=== PATIENT | female | born 1955 | race Caucasian/White ===

== ENCOUNTER 2016-12-15 06:25 | Emergency (ER) | payer BC ==
[2016-12-15] MEDS ORDERED: Ondansetron 4 MG/2 ML SDV IVPUSH ONE (06:43)
[2016-12-15] MEDS ORDERED: Sodium Chloride 0.9% 1,000 ML IV ONE ×2 (07:14→09:08)
[2016-12-15] MEDS ORDERED: Sodium Chloride 0.9% 2.5 ML Syringe FLUSH PRN (07:14)
[2016-12-15] MEDS ORDERED: HYDROmorphone 2 MG/ML Syringe IVPUSH ONE (07:14)
[2016-12-15] MEDS ORDERED: Sodium Chloride 0.9% 10 ML Syringe FLUSH PRN (07:14)
--- NOTE | 2016-12-15 07:18 | EDM.PDOC ---
ED HPI GENERAL MEDICAL PROBLEM - General Chief Complaint: Gastrointestinal Problem Stated Complaint: SHINGLES? Time Seen by Provider: 12/15/16 07:06 - History of Present Illness INITIAL COMMENTS - FREE TEXT/NARRATIVE: HISTORY AND PHYSICAL: History of present illness: The patient is a 61-year-old female who follows at [facility] presents with complaints of persistent flank pain since she had shingles in September and new vomiting that started this morning. Patient states she was seen here in the emergency Department back in September of for shingles on the right flank area which she was treated for an improved. Then she had a repeat episode on the left flank which was treated and improved. She had persistent pain on the left flank and back area since that episode and has since seen her provider at [facility]. She was placed on hydrocortisone and gabapentin and felt like it when she took the 2 together they did not seem to work. She has been taking hydrocodone alone and that seems to help with the pain. She tried to taper herself down on the hydrocodone and start the gabapentin and the pain has returned. This morning she woke and has had several episodes of dry heaves and she is concerned about this. She states that her upper abdomen is "sore" but that started after the vomiting. She's had no fevers chills chest pain or shortness of breath and no diarrhea or black or bloody stools. She's had no urinary complaints such as hematuria dysuria or frequency. She has no history. She has not noticed any new rashes. She does have a history of psoriasis which is not new or changed. Review of systems: As per history of present illness and below otherwise all systems reviewed and negative. Past medical history: As per history of present illness and as reviewed below otherwise noncontributory. Surgical history: As per history of present illness and as reviewed below otherwise noncontributory. Social history: No reported history of drug or alcohol abuse. Family history: As per history of present illness and as reviewed below otherwise noncontributory. Physical exam: General: Well-developed well-nourished female who looks uncomfortable in the room but is not colicky. It is sensitive been reviewed by me. HEENT: Atraumatic, normocephalic, pupils reactive, negative for conjunctival pallor or scleral icterus, mucous membranes tacky, throat clear, neck supple, nontender, trachea midline. Lungs: Clear to auscultation, breath sounds equal bilaterally, chest nontender. Heart: S1S2, regular, negative for clicks, rubs, or JVD. Abdomen: Soft, nondistended, mild diffuse abdominal tenderness without any localization right left upper lower, no rebound guarding or tympany, bowel sounds are slightly hypoactive Negative for masses or hepatosplenomegaly. Negative for costovertebral tenderness. Pelvis: Stable nontender. Genitourinary: Deferred. Rectal: Deferred. Extremities: Atraumatic, negative for cords or calf pain. Neurovascular unremarkable. Neuro: Awake, alert, oriented. Cranial nerves II through XII unremarkable. Cerebellum unremarkable. Motor and sensory unremarkable throughout. Exam nonfocal. Skin: Normal turgor, there is diffuse psoriasis seen on the trunk and the remainder of the exposed skin but there are no vesicular lesions redness or rashes appreciated Diagnostics: CBC CMP amylase lipase UA urine culture if indicated CT scan of the abdomen and pelvis Therapeutics: IV fluids Zofran Dilaudid 0908: CT scan results and case was discussed with our urologist Dr. Cormier; he is going to review the CAT scan and help guide treatment plan. 0935: Dr. Saldaña has reviewed the CT and discuss the case with the radiologist . He will perform a CT-guided biopsy and I will contact the patient's provider at [place] for following up of that biopsy. Dr. Cormier recommends a UTI treatment with antibiotics and she can be discharged home on antibiotics after the biopsy is performed. 1010: Patient is going to CT now and will return after the biopsy 1049: This case was discussed with Patricia Pino the nurse practitioner at [facility] and she is also going to discuss this case with Stefano Rhodes. I've advised CT scan to make sure that the pathology report is sent to them as these are her primary care providers and she will need followup of those biopsy results. When the patient is discharged from the ER I will advise to call for followup with Stefano Rhodes ,as Patricia Pino is out of town next week, to get these biopsy results. Per Dr. Diaz, the biopsy was uneventful and the patient tolerated the procedure well. He advises that we watch her for about an hour afterwards and then we can discharge. Patient is aware of this care plan and I will send her home with Percocet Zofran and Levaquin. Impression: Left retroperitoneal mass, UTI Definitive disposition and diagnosis as appropriate pending reevaluation and review of above. Treatments OFFICE CLERK ASSISTANT: Reports: Other (see below) Other Treatments OFFICE CLERK ASSISTANT: hydrocodone abdominal & back area Pain Score (Numeric/FACES): 10 - Related Data Allergies Allergy/AdvReac Type Severity Reaction Status Date / Time aspirin Allergy Anaphylactic Verified 12/15/16 06:31 Shock codeine Allergy Nausea Verified 12/15/16 06:31 erythromycin estolate Allergy Cannot Verified 12/15/16 06:31 [From Ilosone] Remember gluten Allergy Rash Verified 12/15/16 06:31 Penicillins Allergy Cannot Verified 12/15/16 06:31 Remember propoxyphene HCl Allergy Nausea Verified 12/15/16 06:31 [From Darvon] Home Meds: Home Meds Lactobacillus Acidophilus [Probiotic] 1 cap PO DAILY 04/05/16 [History] Multivitamin [Multiple Vitamins] 1 tab PO DAILY 04/05/16 [History] Blair-3/DHA/Epa/Fish Oil [Blair 3 500 Softgel] 1,000 mg PO DAILY 04/05/16 [ History] Past Medical History HEENT History: Reports: None Other HEENT History: wears glasses/contacts Cardiovascular History: Reports: None Respiratory History: Reports: None Gastrointestinal History: Reports: None Genitourinary History: Reports: None [employer] History: Reports: None Musculoskeletal History: Reports: Fracture Other Musculoskeletal History: hx of fx wrist Neurological History: Reports: None Psychiatric History: Reports: None Endocrine/Metabolic History: Reports: None Hematologic History: Reports: None Immunologic History: Reports: None Oncologic (Cancer) History: Reports: None Dermatologic History: Reports: Psoriasis - Infectious Disease History Infectious Disease History: Reports: Shingles - Past Surgical History Head Surgeries/Procedures: Reports: None HEENT Surgical History: Reports: Oral surgery, Tonsillectomy Cardiovascular Surgical History: Reports: None Respiratory Surgical History: Reports: None GI Surgical History: Reports: Appendectomy Female Surgical History: Reports: Hysterectomy Endocrine Surgical History: Reports: None Neurological Surgical History: Reports: None Musculoskeletal Surgical History: Reports: None Oncologic Surgical History: Reports: None Dermatological Surgical History: Reports: None Social & Family History - Family History Family Medical History: Noncontributory - Tobacco Use Smoking Status *Q: Never Smoker - Caffeine Use Caffeine Use: Reports: None - Recreational Drug Use Recreational Drug Use: No Drug Use in Last 12 Months: No ED ROS GENERAL - Review of Systems Review Of Systems: ROS reveals no pertinent complaints other than HPI. ED EXAM, GENERAL - Physical Exam Exam: See Below (See dictation) Course - Vital Signs Last Recorded V/S: Last Vital Signs Temp 37.1 C 12/15/16 11:19 Pulse 88 12/15/16 11:19 Resp 16 12/15/16 11:19 BP 132/62 12/15/16 11:19 Pulse Ox 99 12/15/16 11:19 - Orders/Labs/Meds Orders: Active Orders 24 hr Category Date Time Status Biopsy Lymph Nodes [CT] Routine Exams 12/15/16 10:17 Ordered Guide [CT] Routine Exams 12/15/16 10:16 Ordered CULTURE URINE [RM] Stat Lab 12/15/16 06:50 Received Sodium Chloride 0.9% [Saline Flush] Med 12/15/16 07:14 Active 10 ml FLUSH ASDIRECTED PRN Sodium Chloride 0.9% [Saline Flush] Med 12/15/16 07:14 Active 2.5 ml FLUSH ASDIRECTED PRN Saline Lock Insert [OM.PC] Stat Oth 12/15/16 07:13 Ordered Medication Orders Sodium Chloride (Saline Flush) 10 ml FLUSH ASDIRECTED PRN PRN Reason: Keep Vein Open Sodium Chloride (Saline Flush) 2.5 ml FLUSH ASDIRECTED PRN PRN Reason: Keep Vein Open Labs: Laboratory Tests 12/15/16 12/15/16 12/15/16 Range/Units 06:40 06:40 06:50 WBC 11.93 H (4.0-11.0) K/uL RBC 4.48 (4.30-5.90) M/uL Hgb 13.2 (12.0-16.0) g/dL Hct 38.8 (36.0-46.0) % MCV 86.6 (80.0-98.0) fL MCH 29.5 (27.0-32.0) pg MCHC 34.0 (31.0-37.0) g/dL RDW Std Deviation 42.1 (28.0-62.0) fl RDW Coeff of Carlos 13 (11.0-15.0) % Plt Count 228 (150-400) K/uL MPV 10.50 (7.40-12.00) fL Neut % (Auto) 85.5 H (48.0-80.0) % Lymph % (Auto) 4.3 L (16.0-40.0) % Payne % (Auto) 9.9 (0.0-15.0) % Eos % (Auto) 0.2 (0.0-7.0) % Baso % (Auto) 0.1 (0.0-1.5) % Neut # (Auto) 10.2 H (1.4-5.7) K/uL Lymph # (Auto) 0.5 L (0.6-2.4) K/uL Payne # (Auto) 1.2 H (0.0-0.8) K/uL Eos # (Auto) 0.0 (0.0-0.7) K/uL Baso # (Auto) 0.0 (0.0-0.1) K/uL Nucleated RBC % 0.0 /100WBC Nucleated RBCs # 0 K/uL Sodium 136 (136-146) mmol/L Potassium 4.3 (3.5-5.1) mmol/L Chloride 99 (98-110) mmol/L Carbon Dioxide 20 L (21-31) mmol/L BUN 7 (6.0-23.0) mg/dL Creatinine 0.7 (0.6-1.5) mg/dL Est Cr Clr Drug Dosing 74.72 mL/min Estimated GFR (MDRD) > 60.0 ml/min Glucose 137 H (60-110) mg/dL Calcium 9.5 (8.8-10.8) mg/dL Total Bilirubin 0.8 (0.1-1.5) mg/dL AST 14 (5-40) IU/L ALT 10 (8-54) IU/L Alkaline Phosphatase 78 (40-150) Total Protein 7.7 (6.0-8.0) g/dL Albumin 4.1 (3.5-5.0) g/dL Globulin 3.6 H (2.0-3.5) g/dL Albumin/Globulin Ratio 1.1 L (1.3-2.8) Amylase 182 H (10-90) U/L Lipase 9 (7-80) U/L Urine Color YELLOW Urine Appearance CLEAR Urine pH 5.5 (5.0-8.0) Ur Specific Stanton 1.025 (1.001-1.035) Urine Protein TRACE (NEGATIVE) mg/dL Urine Glucose (UA) NEGATIVE (NEGATIVE) mg/dL Urine Ketones >=80 (NEGATIVE) mg/dL Urine Occult Blood MODERATE (NEGATIVE) Urine Nitrite NEGATIVE (NEGATIVE) Urine Bilirubin SMALL H (NEGATIVE) Urine Ictotest NEGATIVE Urine Urobilinogen 0.2 (<2.0) EU/dL Ur Leukocyte Esterase MODERATE (NEGATIVE) Urine RBC 4-6 (0-2/HPF) Urine WBC 12-15 (0-5/HPF) Ur Epithelial Cells MODERATE (NONE-FEW) Urine Bacteria 1+ H (NEGATIVE) Urine Mucus LIGHT (NONE-MOD) Meds: Medications Generic Name Dose Route Start Last Admin Trade Name Freq PRN Reason Stop Dose Admin Sodium Chloride 10 ml 12/15/16 07:14 Saline Flush FLUSH ASDIRECTED PRN Keep Vein Open Sodium Chloride 2.5 ml 12/15/16 07:14 Saline Flush FLUSH ASDIRECTED PRN Keep Vein Open Discontinued Medications Generic Name Dose Route Start Last Admin Trade Name Freq PRN Reason Stop Dose Admin Hydromorphone HCl 0.5 mg 12/15/16 07:14 12/15/16 07:38 Dilaudid IVPUSH 12/15/16 07:15 0.5 mg ONETIME ONE Administration Hydromorphone HCl 1 mg 12/15/16 10:28 12/15/16 10:39 Dilaudid IVPUSH 12/15/16 10:29 1 mg ONETIME ONE Administration Sodium Chloride 1,000 mls @ 999 mls/hr 12/15/16 07:14 12/15/16 07:37 Normal Saline IV 12/15/16 08:14 999 mls/hr STAT ONE Administration Sodium Chloride 1,000 mls @ 999 mls/hr 12/15/16 09:08 12/15/16 09:12 Normal Saline IV 12/15/16 10:08 999 mls/hr STAT ONE Administration Levofloxacin/Dextrose 500 mg/ 100 mls @ 100 mls/hr 12/15/16 09:30 12/15/16 09 :52 Premix IV 12/15/16 10:29 100 mls/hr ONETIME ONE Administration Iopamidol 100 ml 12/15/16 08:13 12/15/16 08:18 Isovue Multipack-370 (76%) IVPUSH 12/15/16 08:14 100 ml ONETIME STA Administration Ondansetron HCl 4 mg 12/15/16 06:43 12/15/16 06:52 Zofran IVPUSH 12/15/16 06:44 4 mg ONETIME ONE Administration Departure - Departure Time of Disposition: 11:28 Disposition: Home, Self-Care 01 Condition: good Clinical Impression: UTI, Urinary tract infectious disease, Retroperitoneal mass Referrals: Stefano Tirado MD [Primary Care Provider] - Forms: ED Department Discharge Additional Instructions: The following information is given to patients seen in the emergency department who are being discharged to home. This information is to outline your options for follow-up care. We provide all patients seen in our emergency department with a follow-up referral. The need for follow-up, as well as the timing and circumstances, are variable depending upon the specifics of your emergency department visit. If you don't have a primary care physician on staff, we will provide you with a referral. We always advise you to contact your personal physician following an emergency department visit to inform them of the circumstance of the visit and for follow-up with them and/or the need for any referrals to a consulting specialist. The emergency department will also refer you to a specialist when appropriate. This referral assures that you have the opportunity for followup care with a specialist. All of these measure are taken in an effort to provide you with optimal care, which includes your followup. Under all circumstances we always encourage you to contact your private physician who remains a resource for coordinating your care. When calling for followup care, please make the office aware that this follow-up is from your recent emergency room visit. If for any reason you are refused follow-up, please contact the [facility] emergency department at and ask to speak to the emergency department charge nurse. [address] [place] [address] Please take and it waxes directed until they are finished and take the medication as prescribed. Please call for a followup appointment with Dr. Stefano Rhodes next week to get your biopsy results and return to the ER as needed and as discussed - My Orders Last 24 Hours: My Active Orders 12/15/16 06:50 CULTURE URINE [RM] Stat 12/15/16 07:13 Saline Lock Insert [OM.PC] Stat 12/15/16 07:14 Sodium Chloride 0.9% [Saline Flush] 10 ml FLUSH ASDIRECTED PRN Sodium Chloride 0.9% [Saline Flush] 2.5 ml FLUSH ASDIRECTED PRN 12/15/16 10:16 Guide [CT] Routine 12/15/16 10:17 Biopsy Lymph Nodes [CT] Routine - Assessment/Plan Last 24 Hours: My Active Orders 12/15/16 06:50 CULTURE URINE [RM] Stat 12/15/16 07:13 Saline Lock Insert [OM.PC] Stat 12/15/16 07:14 Sodium Chloride 0.9% [Saline Flush] 10 ml FLUSH ASDIRECTED PRN Sodium Chloride 0.9% [Saline Flush] 2.5 ml FLUSH ASDIRECTED PRN 12/15/16 10:16 Guide [CT] Routine 12/15/16 10:17 Biopsy Lymph Nodes [CT] Routine
[2016-12-15 07:36] LABS: CHLORIDE,CL 99 mmol/L (98-110); SODIUM,NA 136 mmol/L (136-146)
[2016-12-15] MEDS ORDERED: Iopamidol 755 MG/ML 500 ML Multipack Bottle IVPUSH STA (08:13)
--- NOTE | 2016-12-15 09:05 | CT ---
CT of the abdomen and pelvis with and without contrast. HISTORY: Pain TECHNIQUE: Axial CT images were obtained of the abdomen and pelvis without and following the adminis tration of 100 mL of Isovue-370 left antecubital fossa. Coronal and sagittal reconstructions obtaine d. FINDINGS: The lung bases are clear, no pleural effusion. There is a tiny area of focal fatty infiltration near the falciform ligament. Spleen is mildly promi nent in size. There is a single gallstone noted. The pancreas appears normal. There is a complex mas slike area of lymph node conglomeration along the retroperitoneum, most prominent along the left isra e of the aorta. This measures approximately 11 x 6 cm. There are a few right periaortic lymph nodes are also noted measuring up to 2.6 cm in the short axis. The left adrenal gland is mildly heterogene ous and nodular. The right adrenal gland appears normal. There is mild delay in the left renal enhancement, however excretion is noted on the delayed images. There is mild to moderate left pyelocaliectasis extending to the region of the mass-like conglomera tion. There is a duplicated right renal collecting system. The large and small bowel are normal in caliber without evidence of obstruction. Diverticulosis with out evidence of diverticulitis. There is a borderline left iliac chain lymph node measuring 1.3 cm. No free fluid. No free air. The urinary bladder appears normal. The visualized osseous structures appear normal. IMPRESSION: 1. There is a large heterogeneous lymph node conglomeration within the retroperitoneum, asymmetric t o the left, resulting in at least partial obstruction of the left ureter. Moderate proximal left hyd ronephrosis is noted. 2. Diverticulosis without evidence of diverticulitis. 3. Cholelithiasis without evidence of cholecystitis. 4. Duplicated right renal collecting system.
[2016-12-15] MEDS ORDERED: Levofloxacin/Dextrose 5%-Water 500 MG in Premix Bag 1 BAG IV ONE (09:30)
[2016-12-15] MEDS ORDERED: HYDROmorphone 1 MG/ML Syringe IVPUSH ONE (10:28)
[2016-12-15 12:03] VITALS: BP 138/64
--- NOTE | 2016-12-15 12:07 | CT ---
EXAMINATION: CT guided left retroperitoneal lymph node biopsy HISTORY: Mass/lymphadenopathy COMPARISON: CT from the same day TECHNIQUE: The procedure, risks, and benefits were discussed with the patient. Risks included bleedi ng, infection, and pain. Written informed consent was obtained. The patient was placed prone on the fluoroscopic table. An adequate location was identified using and aortic calcification is a guide. T he area sterilely prepped and draped. 1% lidocaine was administered for local anesthesia. Using CT g uidance a 16-gauge trocar was advanced into the left retroperitoneal mass. A total of 4 18-gauge cor e biopsies were obtained. There is no bleeding noted through the trocar following the biopsies. No s ignificant retroperitoneal bleeding was noted post biopsy image. The patient tolerated the procedure well. There are no immediate complications. The patient was monitored in the ER following the proce dure. IMPRESSION: Successful CT-guided left retroperitoneal mass/lymph node biopsy.
== END 2016-12-15 12:21 | disposition home or self-care (01) ==
LOC: MW.ED 06:25
PROC: 07BD3ZX Excision of Aortic Lymphatic, Percutaneous Approach, Diagnostic (ICD-10-PCS; principal; 2016-12-15)
DX: R19.00 Intra-abdominal and pelvic swelling, mass and lump, unspecified site (principal); N39.0 Urinary tract infection, site not specified; Z88.8 Allergy status to other drugs, medicaments and biological substances; Z88.0 Allergy status to penicillin
CPT/HCPCS: 36415; 38505; 49180; 74178; 77012; 80053; 81001; 82150; 83690; 85025; 87086; 96361; 96365; 96375; 96376; 99284; J1170; J1956; J2405; J7040; Q9967; 88305; 99285

== ENCOUNTER 2016-12-16 09:00 | Emergency (ER) | payer BC ==
--- NOTE | 2016-12-16 09:07 | EDM.PDOC ---
ED HPI GENERAL MEDICAL PROBLEM - General Stated Complaint: IN PAINS Time Seen by Provider: 12/16/16 09:05 - History of Present Illness INITIAL COMMENTS - FREE TEXT/NARRATIVE: HISTORY AND PHYSICAL: History of present illness: The patient is a 61-year-old female who was seen here yesterday for left flank pain and was diagnosed with a left retroperitoneal mass which was evaluated by labs CT scan and she underwent a CT-guided biopsy per ; she was also seen by her right is Dr. Cormier and was treated as a UTI on top of the mass. She was referred back to [facility] where her provider is for biopsy followup as this was very suspicious for a lymphoma this process. The patient did well and was discharged home but never really felt completely pain relieved before leaving and was sent home with Percocet. She reports that today saying that the Percocet is not working and she is having significant pain. She says that taking one and a half tablets of the Percocet 5/325 only last for one hour and should not unable to get any rest. She's had nausea but no vomiting and no fevers. They have not noticed any drainage from the biopsy site. She has no anterior abdominal pain chest pain on the left flank as previously Review of systems: As per history of present illness and below otherwise all systems reviewed and negative. Past medical history: As per history of present illness and as reviewed below otherwise noncontributory. Surgical history: As per history of present illness and as reviewed below otherwise noncontributory. Social history: No reported history of drug or alcohol abuse. Family history: As per history of present illness and as reviewed below otherwise noncontributory. Physical exam: General: Well-developed well-nourished female who is nontoxic vital signs of been reviewed by me HEENT: Atraumatic, normocephalic, pupils reactive, negative for conjunctival pallor or scleral icterus, mucous membranes moist, throat clear, neck supple, nontender, trachea midline. Lungs: Clear to auscultation, breath sounds equal bilaterally, chest nontender. Heart: S1S2, regular, negative for clicks, rubs, or JVD. Abdomen: Soft, nondistended, nontender. NABS. The biopsy site is clean and dry without any ecchymosis soft tissue swelling or any changes from yesterday when I evaluated it. Skin: Normal turgor no evidence of any rashes or lesions Genitourinary: Deferred. Rectal: Deferred. Extremities: Atraumatic, negative for cords or calf pain. Neurovascular unremarkable. Neuro: Awake, alert, oriented. Cranial nerves II through XII unremarkable. Cerebellum unremarkable. Motor and sensory unremarkable throughout. Exam nonfocal. Diagnostics: CBC CMP Therapeutics: IV fluids Dilaudid Toradol Zofran 09: Patricia Pino at [facility] was informed that the patient is here as she has been following with this patient. She does have appointments open on Monday for followup and if need be she can see the patient later today. 0937: Case was discussed with our radiologist Dr. Diaz about her intractable pain and he recommends re\re imaging the area just to make sure that there is no retroperitoneal bleeding from the biopsy and that the hydronephrosis that was present yesterday is now progressing. He reiterates that the biopsy was very uncomplicated with minimal bleeding he doesn't anticipate there is bleeding but due to the patient's clinical state he recommends rescanning. Patient was made aware of this. 1120: Case was discussed with Dr. Patterson for advice for pain management stronger than her cassette. He recommends oral Dilaudid 1-2 mg every 4-6 hours and if that is not working then the patient can see her primary for further recommendations. I have discussed this care plan with Patricia Pino and she will see the patient on Monday and her office will contact the for an appointment time. The patient states she has an appointment with Dr. Stefano Rhodes on Monday and I advised that she can hold off until that appointment as it would be better but if she cannot and needs a change in meds she should go to the appointment on Monday. I discussed the testing results with the patient and the care plan for home. They still do not seem incredibly comfortable with this but as she is very comfortable currently in the ED she is willing to try. According to nursing she seemed to get a great deal of relief just from the Toradol so I will prescribe her a short burst of that as well. Advised them that if they're having issues that she can return to the ER. Impression: Left flank pain persistent with history of retroperitoneal mass Definitive disposition and diagnosis as appropriate pending reevaluation and review of above. Left Back Pain Score (Numeric/FACES): 10 - Related Data Allergies Allergy/AdvReac Type Severity Reaction Status Date / Time aspirin Allergy Anaphylactic Verified 12/15/16 06:31 Shock codeine Allergy Nausea Verified 12/15/16 06:31 erythromycin estolate Allergy Cannot Verified 12/15/16 06:31 [From Ilosone] Remember gluten Allergy Rash Verified 12/15/16 06:31 Penicillins Allergy Cannot Verified 12/15/16 06:31 Remember propoxyphene HCl Allergy Nausea Verified 12/15/16 06:31 [From Darvon] Home Meds: Home Meds Lactobacillus Acidophilus [Probiotic] 1 cap PO DAILY 04/05/16 [History] Multivitamin [Multiple Vitamins] 1 tab PO DAILY 04/05/16 [History] Albion-3/DHA/Epa/Fish Oil [Albion 3 500 Softgel] 1,000 mg PO DAILY 04/05/16 [ History] Hydrocodone/Acetaminophen [Hydrocodon-Acetaminophn 10-325] 1 - 2 tab PO Q4H PRN 12/16/16 [History] Levofloxacin [Levaquin] 0 mg PO DAILY 12/16/16 [History] oxyCODONE HCl/Acetaminophen [oxyCODONE-Acetaminophen 5-325] 1 - 2 tab PO Q6H PRN 12/16/16 [History] Past Medical History HEENT History: Reports: None Other HEENT History: wears glasses/contacts Cardiovascular History: Reports: None Respiratory History: Reports: None Gastrointestinal History: Reports: None Genitourinary History: Reports: None REMITTANCE CLERK History: Reports: None Musculoskeletal History: Reports: Fracture Other Musculoskeletal History: hx of fx wrist Neurological History: Reports: None Psychiatric History: Reports: None Endocrine/Metabolic History: Reports: None Hematologic History: Reports: None Immunologic History: Reports: None Oncologic (Cancer) History: Reports: None Dermatologic History: Reports: Psoriasis - Infectious Disease History Infectious Disease History: Reports: Shingles - Past Surgical History Head Surgeries/Procedures: Reports: None HEENT Surgical History: Reports: Oral surgery, Tonsillectomy Cardiovascular Surgical History: Reports: None Respiratory Surgical History: Reports: None GI Surgical History: Reports: Appendectomy Female Surgical History: Reports: Hysterectomy Endocrine Surgical History: Reports: None Neurological Surgical History: Reports: None Musculoskeletal Surgical History: Reports: None Oncologic Surgical History: Reports: None Dermatological Surgical History: Reports: None Social & Family History - Family History Family Medical History: Noncontributory - Tobacco Use Smoking Status *Q: Never Smoker - Caffeine Use Caffeine Use: Reports: None - Recreational Drug Use Recreational Drug Use: No Drug Use in Last 12 Months: No ED ROS GENERAL - Review of Systems Review Of Systems: ROS reveals no pertinent complaints other than HPI. ED EXAM, GENERAL - Physical Exam Exam: See Below (See dictation) Course - Vital Signs Last Recorded V/S: Last Vital Signs Temp 36.8 C 12/16/16 09:15 Pulse 96 12/16/16 09:15 Resp 22 H 12/16/16 09:15 BP 155/69 H 12/16/16 09:15 Pulse Ox 100 12/16/16 09:15 - Orders/Labs/Meds Orders: Active Orders 24 hr Category Date Time Status Sodium Chloride 0.9% [Saline Flush] Med 12/16/16 09:08 Active 10 ml FLUSH ASDIRECTED PRN Sodium Chloride 0.9% [Saline Flush] Med 12/16/16 09:08 Active 2.5 ml FLUSH ASDIRECTED PRN Saline Lock Insert [OM.PC] Stat Oth 12/16/16 09:08 Ordered Medication Orders Sodium Chloride (Saline Flush) 10 ml FLUSH ASDIRECTED PRN PRN Reason: Keep Vein Open Last Admin: 12/16/16 09:51 Dose: 10 ml Sodium Chloride (Saline Flush) 2.5 ml FLUSH ASDIRECTED PRN PRN Reason: Keep Vein Open Last Admin: 12/16/16 09:51 Dose: 2.5 ml Labs: Laboratory Tests 12/16/16 12/16/16 Range/Units 09:18 09:18 WBC 11.16 H (4.0-11.0) K/uL RBC 4.10 L (4.30-5.90) M/uL Hgb 12.2 (12.0-16.0) g/dL Hct 36.0 (36.0-46.0) % MCV 87.8 (80.0-98.0) fL MCH 29.8 (27.0-32.0) pg MCHC 33.9 (31.0-37.0) g/dL RDW Std Deviation 43.7 (28.0-62.0) fl RDW Coeff of Carlos 14 (11.0-15.0) % Plt Count 217 (150-400) K/uL MPV 10.50 (7.40-12.00) fL Neut % (Auto) 82.0 H (48.0-80.0) % Lymph % (Auto) 5.3 L (16.0-40.0) % Holt % (Auto) 12.2 (0.0-15.0) % Eos % (Auto) 0.4 (0.0-7.0) % Baso % (Auto) 0.1 (0.0-1.5) % Neut # (Auto) 9.2 H (1.4-5.7) K/uL Lymph # (Auto) 0.6 (0.6-2.4) K/uL Holt # (Auto) 1.4 H (0.0-0.8) K/uL Eos # (Auto) 0.1 (0.0-0.7) K/uL Baso # (Auto) 0.0 (0.0-0.1) K/uL Nucleated RBC % 0.0 /100WBC Nucleated RBCs # 0 K/uL Sodium 137 (136-146) mmol/L Potassium 5.2 H (3.5-5.1) mmol/L Chloride 101 (98-110) mmol/L Carbon Dioxide 23 (21-31) mmol/L BUN 8 (6.0-23.0) mg/dL Creatinine 0.9 (0.6-1.5) mg/dL Est Cr Clr Drug Dosing 58.54 mL/min Estimated GFR (MDRD) > 60.0 ml/min Glucose 124 H (60-110) mg/dL Calcium 9.9 (8.8-10.8) mg/dL Total Bilirubin 0.6 (0.1-1.5) mg/dL AST 11 (5-40) IU/L ALT 10 (8-54) IU/L Alkaline Phosphatase 79 (40-150) Total Protein 7.3 (6.0-8.0) g/dL Albumin 3.9 (3.5-5.0) g/dL Globulin 3.4 (2.0-3.5) g/dL Albumin/Globulin Ratio 1.1 L (1.3-2.8) Meds: Medications Generic Name Dose Route Start Last Admin Trade Name Freq PRN Reason Stop Dose Admin Sodium Chloride 10 ml 12/16/16 09:08 12/16/16 09:51 Saline Flush FLUSH 10 ml ASDIRECTED PRN Administration Keep Vein Open Sodium Chloride 2.5 ml 12/16/16 09:08 12/16/16 09:51 Saline Flush FLUSH 2.5 ml ASDIRECTED PRN Administration Keep Vein Open Discontinued Medications Generic Name Dose Route Start Last Admin Trade Name Ocq PRN Reason Stop Dose Admin Hydromorphone HCl 1 mg 12/16/16 09:20 12/16/16 09:44 Dilaudid IVPUSH 12/16/16 09:21 1 mg ONETIME ONE Administration Sodium Chloride 500 mls @ 999 mls/hr 12/16/16 09:30 Normal Saline IV STAT BATSHEVA Sodium Chloride 500 mls @ 999 mls/hr 12/16/16 09:47 12/16/16 09:49 Normal Saline IV 12/16/16 10:17 999 mls/hr .Bolus ONE Administration Iopamidol 75 ml 12/16/16 10:04 Isovue Multipack-370 (76%) IVPUSH 12/16/16 10:05 ONETIME STA Ketorolac Tromethamine 30 mg 12/16/16 09:20 12/16/16 09:43 Toradol IVPUSH 12/16/16 09:21 30 mg ONETIME ONE Administration Ondansetron HCl 4 mg 12/16/16 09:20 12/16/16 09:43 Zofran IVPUSH 12/16/16 09:21 4 mg ONETIME ONE Administration Departure - Departure Time of Disposition: 11:49 Disposition: Home, Self-Care 01 Condition: good Clinical Impression: Left flank pain, Retroperitoneal mass Additional Instructions: The following information is given to patients seen in the emergency department who are being discharged to home. This information is to outline your options for follow-up care. We provide all patients seen in our emergency department with a follow-up referral. The need for follow-up, as well as the timing and circumstances, are variable depending upon the specifics of your emergency department visit. If you don't have a primary care physician on staff, we will provide you with a referral. We always advise you to contact your personal physician following an emergency department visit to inform them of the circumstance of the visit and for follow-up with them and/or the need for any referrals to a consulting specialist. The emergency department will also refer you to a specialist when appropriate. This referral assures that you have the opportunity for followup care with a specialist. All of these measure are taken in an effort to provide you with optimal care, which includes your followup. Under all circumstances we always encourage you to contact your private physician who remains a resource for coordinating your care. When calling for followup care, please make the office aware that this follow-up is from your recent emergency room visit. If for any reason you are refused follow-up, please contact the [facility] emergency department at and ask to speak to the emergency department charge nurse. [address] [phone] [facility] [address] [place], [place] [id number] Please continue with your antibiotics as prescribed yesterday and stopped her Percocet and start the new medications, Dilaudid and Toradol, for pain. These keep your appointment with Dr. Tirado on Monday or see Patricia Pino on Monday if you need to. Return to ER as needed and as discussed - My Orders Last 24 Hours: My Active Orders 12/16/16 09:08 Sodium Chloride 0.9% [Saline Flush] 10 ml FLUSH ASDIRECTED PRN Sodium Chloride 0.9% [Saline Flush] 2.5 ml FLUSH ASDIRECTED PRN Saline Lock Insert [OM.PC] Stat - Assessment/Plan Last 24 Hours: My Active Orders 12/16/16 09:08 Sodium Chloride 0.9% [Saline Flush] 10 ml FLUSH ASDIRECTED PRN Sodium Chloride 0.9% [Saline Flush] 2.5 ml FLUSH ASDIRECTED PRN Saline Lock Insert [OM.PC] Stat
[2016-12-16] MEDS ORDERED: Sodium Chloride 0.9% 10 ML Syringe FLUSH PRN (09:08)
[2016-12-16] MEDS ORDERED: Sodium Chloride 0.9% 2.5 ML Syringe FLUSH PRN (09:08)
[2016-12-16] MEDS ORDERED: Ketorolac 30 MG/ML SDV IVPUSH ONE (09:20)
[2016-12-16] MEDS ORDERED: HYDROmorphone 2 MG/ML Syringe IVPUSH ONE (09:20)
[2016-12-16] MEDS ORDERED: Ondansetron 4 MG/2 ML SDV IVPUSH ONE (09:20)
[2016-12-16] MEDS ORDERED: Sodium Chloride 0.9% 500 ML IV SCH (09:30)
[2016-12-16] MEDS ORDERED: Sodium Chloride 0.9% 500 ML IV ONE (09:47)
[2016-12-16] MEDS ORDERED: Iopamidol 755 MG/ML 500 ML Multipack Bottle IVPUSH STA (10:04)
[2016-12-16 10:14] LABS: CHLORIDE,CL 101 mmol/L (98-110); SODIUM,NA 137 mmol/L (136-146)
--- NOTE | 2016-12-16 11:08 | CT ---
CT of the abdomen and pelvis with contrast. HISTORY: Pain TECHNIQUE: Axial CT images were obtained of the abdomen and pelvis following administration of 75 mL of Isovue-370 in the right arm without complication. Coronal and sagittal reconstructions obtained. Comparison: 12/15/2016. FINDINGS: The lung bases are clear, no pleural effusion. The liver, spleen, and pancreas appear unchanged. There is nodular thickening of the left adrenal gl and again noted. There is a stable dominant left peritoneal mass/lymph node conglomeration again not ed, unchanged in size and appearance. There is no evidence of retroperitoneal hemorrhage from the re cent biopsy. No free air. There is a single gallstone within the gallbladder. The left kidney again demonstrates moderate proximal hydronephrosis. No residual contrast is noted w ithin the left renal collecting system suggesting only partial obstruction. The right kidney enhance s and functions normal. The large and small bowel are normal in caliber without evidence of obstruction. Diverticulosis with out evidence of diverticulitis. There is a trace free fluid within the pelvis. Stable presumed mildl y prominent left iliac chain lymph node at 11 mm. The urinary bladder is decompressed. No suspicious osseous abnormalities. IMPRESSION: 1. Stable retroperitoneal mass and lymphadenopathy without evidence of retroperitoneal hemorrhage. 2. Stable moderate proximal left hydronephrosis. Clearance of the previous intrarenal contrast sugge sts only partial obstruction. 3. Trace free pelvic fluid. 4. Diverticulosis without evidence of diverticulitis. 5. Cholelithiasis.
[2016-12-16 11:46] VITALS: BP 124/59
== END 2016-12-16 12:08 | disposition home or self-care (01) ==
LOC: MW.ED 09:00
DX: R10.9 Unspecified abdominal pain (principal); R19.09 Other intra-abdominal and pelvic swelling, mass and lump; Z88.0 Allergy status to penicillin; Z88.8 Allergy status to other drugs, medicaments and biological substances; Z79.899 Other long term (current) drug therapy
CPT/HCPCS: 36415; 74177; 80053; 85025; 96361; 96374; 96375; 99284; J1170; J1885; J2405; J7040; Q9967; 99285

== ENCOUNTER 2017-12-07 00:59 | Observation (INO) | payer BC ==
[2017-12-07] MEDS ORDERED: Sodium Chloride 0.9% 2.5 ML Syringe FLUSH PRN ×2 (01:13)
[2017-12-07] MEDS ORDERED: Sodium Chloride 0.9% 10 ML Syringe FLUSH PRN (01:13)
[2017-12-07] MEDS ORDERED: Sodium Chloride 0.9% 1,000 ML IV ONE (01:13)
--- NOTE | 2017-12-07 01:17 | EDM.PDOC ---
ED HPI GENERAL MEDICAL PROBLEM - General Chief Complaint: Chest Pain Stated Complaint: CHEST TIGHTNESS Time Seen by Provider: 12/07/17 01:16 Source of Information: Reports: Patient, Family History Limitations: Reports: No Limitations - History of Present Illness INITIAL COMMENTS - FREE TEXT/NARRATIVE: HISTORY AND PHYSICAL: History of present illness: [62-year-old female presenting to emergency department with chief complaint of chest tightness starting at midnight this evening with past medical history of non-Hodgkin's lymphoma last chemotherapy 7 days ago. Patient states that around 11:30 last evening she started to feel "mildly achy" . Then around midnight began to have some chest tightness which radiated into her left arm. The pain was constant and sharp and has continued since presenting to the emergency department. She has no significant cardiopulmonary history but was diagnosed with non-Hodgkin's lymphoma and recent received her last chemotherapy last 11/30/17. She denies any associated nausea, vomiting, diaphoresis or radiation into the jaw. She does have a right-sided port. She has had mild shortness of breath she feels this most likely is related to her anxiety that she is feeling with her chest pain. She denies any palpitations, syncopal episodes, abdominal pain, diarrhea, or focal neurologic deficits. She has noticed some leg swelling bilaterally which is more chronic nature. Echocardiogram performed on 09/08/17 showed a LVEF of 65%, grade 1 impaired relaxation of the left ventricle diastolic filling, mild MV regurg, trace tricuspid regurg, and minimal dilation of the aortic root. 0215: CBC: Neutropenia 3.55, ALT 94, UA negative, CXR unremarkable, ECG no ST changes, NSR, one PAC noted. 0310: D-dimer negative. Patient continued to have chest/back pain without EKG changes and negative troponin. ] Review of systems: As per history of present illness and below otherwise all systems reviewed and negative. Past medical history: As per history of present illness and as reviewed below otherwise noncontributory. Surgical history: As per history of present illness and as reviewed below otherwise noncontributory. Social history: No reported history of drug or alcohol abuse. Family history: As per history of present illness and as reviewed below otherwise noncontributory. Physical exam: HEENT: Atraumatic, normocephalic, pupils reactive, negative for conjunctival pallor or scleral icterus, mucous membranes moist, throat clear, neck supple, nontender, trachea midline. Lungs: Clear to auscultation, breath sounds equal bilaterally, chest nontender. Heart: S1S2, regular, negative for clicks, rubs, or JVD. Abdomen: Soft, nondistended, nontender. Negative for masses or hepatosplenomegaly. Negative for costovertebral tenderness. Pelvis: Stable nontender. Genitourinary: Deferred. Rectal: Deferred. Extremities: Atraumatic, negative for cords or calf pain. Neurovascular unremarkable. Neuro: Awake, alert, oriented. Cranial nerves II through XII unremarkable. Cerebellum unremarkable. Motor and sensory unremarkable throughout. Exam nonfocal. Diagnostics: [CBC, CMP, troponin, amylase, lipase, d-dimer, chest x-ray, EKG,] Therapeutics: [2 mg IV morphine 1 mg IV Dilaudid ] Impression: [Atypical chest pain] Plan: [Patient continued to have atypical chest pain. Talked with hospitalist Dr. Palacios who agreed with admission for observation telemetry for atypical chest pain. This was communicated to the patient who agrees. Patient was found to be neutropenic most likely secondary to recent chemotherapy as she has a history of non-Hodgkin lymphoma. Last chemotherapy was on 11/30/17.] middle chest Pain Score (Numeric/FACES): 8 - Related Data Allergies Allergy/AdvReac Type Severity Reaction Status Date / Time aspirin Allergy Anaphylactic Verified 12/07/17 01:09 Shock codeine Allergy Nausea Verified 12/07/17 01:09 erythromycin estolate Allergy Cannot Verified 12/07/17 01:09 [From Ilosone] Remember gluten Allergy Rash Verified 12/07/17 01:09 Penicillins Allergy Cannot Verified 12/07/17 01:09 Remember propoxyphene HCl Allergy Nausea Verified 12/07/17 01:09 [From Darvon] Home Meds: Home Meds Lactobacillus Acidophilus [Probiotic] 0 mg PO DAILY 04/05/16 [History] Multivitamin [Multiple Vitamins] 0 mg PO DAILY 04/05/16 [History] [place]-3/DHA/Epa/Fish Oil [[place] 3 500 Softgel] 1,000 mg PO DAILY 04/05/16 [ History] Past Medical History HEENT History: Reports: None Other HEENT History: wears glasses/contacts Cardiovascular History: Reports: None Respiratory History: Reports: None Gastrointestinal History: Reports: None Genitourinary History: Reports: None FRIT COATER History: Reports: None Musculoskeletal History: Reports: Fracture Other Musculoskeletal History: hx of fx wrist Neurological History: Reports: None Psychiatric History: Reports: None Endocrine/Metabolic History: Reports: None Hematologic History: Reports: None Immunologic History: Reports: None Oncologic (Cancer) History: Reports: None Dermatologic History: Reports: Psoriasis - Infectious Disease History Infectious Disease History: Reports: Shingles - Past Surgical History HEENT Surgical History: Reports: Oral Surgery, Tonsillectomy Social & Family History - Family History Family Medical History: Noncontributory - Tobacco Use Smoking Status *Q: Never Smoker - Caffeine Use Caffeine Use: Reports: None - Recreational Drug Use Recreational Drug Use: No Drug Use in Last 12 Months: No ED ROS GENERAL - Review of Systems Review Of Systems: See Below ED EXAM, GENERAL - Physical Exam Exam: See Below Course - Vital Signs Last Recorded V/S: Last Vital Signs Temp 98.5 F 12/07/17 02:48 Pulse 83 12/07/17 02:48 Resp 15 12/07/17 02:48 BP 139/78 12/07/17 02:48 Pulse Ox 100 12/07/17 02:48 - Orders/Labs/Meds Orders: Active Orders 24 hr Category Date Time Status Cardiac Monitoring [RC] . DIRECTED Care 12/07/17 01:13 Active EKG Documentation Completion [RC] STAT Care 12/07/17 01:13 Active Oxygen Therapy [RC] ASDIRECTED Care 12/07/17 01:13 Active Pulse Oximetry [RC] ASDIRECTED Care 12/07/17 01:13 Active Chest 1V Frontal [CR] Stat Exams 12/07/17 01:13 Taken Sodium Chloride 0.9% [Saline Flush] Med 12/07/17 01:13 Active 10 ml FLUSH ASDIRECTED PRN Sodium Chloride 0.9% [Saline Flush] Med 12/07/17 01:13 Active 2.5 ml FLUSH ASDIRECTED PRN Sodium Chloride 0.9% [Saline Flush] Med 12/07/17 01:13 Active 2.5 ml FLUSH ASDIRECTED PRN Saline Lock Insert [OM.PC] Stat Oth 12/07/17 01:13 Ordered Medication Orders Sodium Chloride (Saline Flush) 2.5 ml FLUSH ASDIRECTED PRN PRN Reason: Keep Vein Open Sodium Chloride (Saline Flush) 10 ml FLUSH ASDIRECTED PRN PRN Reason: Keep Vein Open Sodium Chloride (Saline Flush) 2.5 ml FLUSH ASDIRECTED PRN PRN Reason: Keep Vein Open Labs: Laboratory Tests 12/07/17 12/07/17 12/07/17 Range/Units 00:28 01:19 01:19 WBC 3.55 L (4.0-11.0) K/uL RBC 3.61 L (4.30-5.90) M/uL Hgb 11.1 L (12.0-16.0) g/dL Hct 33.3 L (36.0-46.0) % MCV 92.2 (80.0-98.0) fL MCH 30.7 (27.0-32.0) pg MCHC 33.3 (31.0-37.0) g/dL RDW Std Deviation 49.3 (28.0-62.0) fl RDW Coeff of Carlos 15 (11.0-15.0) % Plt Count 94 L (150-400) K/uL MPV 10.20 (7.40-12.00) fL Neut % (Auto) 69.0 (48.0-80.0) % Lymph % (Auto) 13.5 L (16.0-40.0) % [place] % (Auto) 12.4 (0.0-15.0) % Eos % (Auto) 4.8 (0.0-7.0) % Baso % (Auto) 0.3 (0.0-1.5) % Neut # (Auto) 2.5 (1.4-5.7) K/uL Lymph # (Auto) 0.5 L (0.6-2.4) K/uL [place] # (Auto) 0.4 (0.0-0.8) K/uL Eos # (Auto) 0.2 (0.0-0.7) K/uL Baso # (Auto) 0.0 (0.0-0.1) K/uL INR 1.02 D-Dimer, Quantitative (0.0-0.52) mg/LFEU Sodium (136-145) mmol/L Potassium (3.5-5.1) mmol/L Chloride (98-107) mmol/L Carbon Dioxide (21.0-32.0) mmol/L BUN (7.0-18.0) mg/dL Creatinine (0.6-1.0) mg/dL Est Cr Clr Drug Dosing mL/min Estimated GFR (MDRD) ml/min Glucose (74-106) mg/dL Calcium (8.5-10.1) mg/dL Total Bilirubin (0.2-1.0) mg/dL AST (15-37) IU/L ALT (14-63) IU/L Alkaline Phosphatase (46-116) U/L Troponin I (0.000-0.056) ng/mL Total Protein (6.4-8.2) g/dL Albumin (3.4-5.0) g/dL Globulin (2.0-3.5) g/dL Albumin/Globulin Ratio (1.3-2.8) Urine Color YELLOW Urine Appearance CLEAR Urine pH 7.5 (5.0-8.0) Ur Specific [place] 1.015 (1.001-1.035) Urine Protein NEGATIVE (NEGATIVE) mg/dL Urine Glucose (UA) NEGATIVE (NEGATIVE) mg/dL Urine Ketones NEGATIVE (NEGATIVE) mg/dL Urine Occult Blood NEGATIVE (NEGATIVE) Urine Nitrite NEGATIVE (NEGATIVE) Urine Bilirubin NEGATIVE (NEGATIVE) Urine Urobilinogen 0.2 (<2.0) EU/dL Ur Leukocyte Esterase NEGATIVE (NEGATIVE) Urine RBC 0-2 (0-2/HPF) Urine WBC 1-3 (0-5/HPF) Ur Epithelial Cells OCCASIONAL (NONE-FEW) Urine Bacteria RARE (NEGATIVE) 12/07/17 12/07/17 Range/Units 01:19 02:31 WBC (4.0-11.0) K/uL RBC (4.30-5.90) M/uL Hgb (12.0-16.0) g/dL Hct (36.0-46.0) % MCV (80.0-98.0) fL MCH (27.0-32.0) pg MCHC (31.0-37.0) g/dL RDW Std Deviation (28.0-62.0) fl RDW Coeff of Carlos (11.0-15.0) % Plt Count (150-400) K/uL MPV (7.40-12.00) fL Neut % (Auto) (48.0-80.0) % Lymph % (Auto) (16.0-40.0) % [place] % (Auto) (0.0-15.0) % Eos % (Auto) (0.0-7.0) % Baso % (Auto) (0.0-1.5) % Neut # (Auto) (1.4-5.7) K/uL Lymph # (Auto) (0.6-2.4) K/uL [place] # (Auto) (0.0-0.8) K/uL Eos # (Auto) (0.0-0.7) K/uL Baso # (Auto) (0.0-0.1) K/uL INR D-Dimer, Quantitative 0.44 (0.0-0.52) mg/LFEU Sodium 139 (136-145) mmol/L Potassium 4.1 (3.5-5.1) mmol/L Chloride 106 (98-107) mmol/L Carbon Dioxide 26.5 (21.0-32.0) mmol/L BUN 23 H (7.0-18.0) mg/dL Creatinine 0.7 (0.6-1.0) mg/dL Est Cr Clr Drug Dosing 73.80 mL/min Estimated GFR (MDRD) > 60.0 ml/min Glucose 103 (74-106) mg/dL Calcium 9.1 (8.5-10.1) mg/dL Total Bilirubin 0.3 (0.2-1.0) mg/dL AST 11 L (15-37) IU/L ALT 18 (14-63) IU/L Alkaline Phosphatase 86 (46-116) U/L Troponin I < 0.050 (0.000-0.056) ng/mL Total Protein 6.2 L (6.4-8.2) g/dL Albumin 3.8 (3.4-5.0) g/dL Globulin 2.4 (2.0-3.5) g/dL Albumin/Globulin Ratio 1.6 (1.3-2.8) Urine Color Urine Appearance Urine pH (5.0-8.0) Ur Specific [place] (1.001-1.035) Urine Protein (NEGATIVE) mg/dL Urine Glucose (UA) (NEGATIVE) mg/dL Urine Ketones (NEGATIVE) mg/dL Urine Occult Blood (NEGATIVE) Urine Nitrite (NEGATIVE) Urine Bilirubin (NEGATIVE) Urine Urobilinogen (<2.0) EU/dL Ur Leukocyte Esterase (NEGATIVE) Urine RBC (0-2/HPF) Urine WBC (0-5/HPF) Ur Epithelial Cells (NONE-FEW) Urine Bacteria (NEGATIVE) Meds: Medications Generic Name Dose Route Start Last Admin Trade Name Freq PRN Reason Stop Dose Admin Sodium Chloride 2.5 ml 12/07/17 01:13 Saline Flush FLUSH ASDIRECTED PRN Keep Vein Open Sodium Chloride 10 ml 12/07/17 01:13 Saline Flush FLUSH ASDIRECTED PRN Keep Vein Open Sodium Chloride 2.5 ml 12/07/17 01:13 Saline Flush FLUSH ASDIRECTED PRN Keep Vein Open Discontinued Medications Generic Name Dose Route Start Last Admin Trade Name Freq PRN Reason Stop Dose Admin Hydromorphone HCl 1 mg 12/07/17 02:40 12/07/17 02:44 Dilaudid IVPUSH 12/07/17 02:41 1 mg ONETIME ONE Administration Sodium Chloride 1,000 mls @ 999 mls/hr 12/07/17 01:13 12/07/17 01:31 Normal Saline IV 12/07/17 02:13 999 mls/hr .Bolus ONE Administration Morphine Sulfate 2 mg 12/07/17 01:58 12/07/17 02:08 Morphine IVPUSH 12/07/17 01:59 2 mg ONETIME ONE Administration Ondansetron HCl 4 mg 12/07/17 02:00 12/07/17 02:07 Zofran IVPUSH 12/07/17 02:01 4 mg ONETIME ONE Administration Departure - Departure Time of Disposition: 03:17 Disposition: Admitted As Inpatient 68 Condition: Fair Clinical Impression: Atypical chest pain - Discharge Information Referrals: Stefano Tirado MD [Primary Care Provider] - Forms: ED Department Discharge Additional Instructions: My general discharge The following information is given to patients seen in the emergency department who are being discharged to home. This information is to outline your options for follow-up care. We provide all patients seen in our emergency department with a follow-up referral. The need for follow-up, as well as the timing and circumstances, are variable depending upon the specifics of your emergency department visit. If you don't have a primary care physician on staff, we will provide you with a referral. We always advise you to contact your personal physician following an emergency department visit to inform them of the circumstance of the visit and for follow-up with them and/or the need for any referrals to a consulting specialist. The emergency department will also refer you to a specialist when appropriate. This referral assures that you have the opportunity for follow-up care with a specialist. All of these measure are taken in an effort to provide you with optimal care, which includes your follow-up. Under all circumstances we always encourage you to contact your private physician who remains a resource for coordinating your care. When calling for follow-up care, please make the office aware that this follow-up is from your recent emergency room visit. If for any reason you are refused follow-up, please contact the [facility] Emergency Department at and asked to speak to the emergency department charge nurse. [facility] [address] [place] [address] - My Orders Last 24 Hours: My Active Orders 12/07/17 01:13 Cardiac Monitoring [RC] . DIRECTED EKG Documentation Completion [RC] STAT Oxygen Therapy [RC] ASDIRECTED Pulse Oximetry [RC] ASDIRECTED Chest 1V Frontal [CR] Stat Sodium Chloride 0.9% [Saline Flush] 10 ml FLUSH ASDIRECTED PRN Sodium Chloride 0.9% [Saline Flush] 2.5 ml FLUSH ASDIRECTED PRN Sodium Chloride 0.9% [Saline Flush] 2.5 ml FLUSH ASDIRECTED PRN Saline Lock Insert [OM.PC] Stat - Assessment/Plan Last 24 Hours: My Active Orders 12/07/17 01:13 Cardiac Monitoring [RC] . DIRECTED EKG Documentation Completion [RC] STAT Oxygen Therapy [RC] ASDIRECTED Pulse Oximetry [RC] ASDIRECTED Chest 1V Frontal [CR] Stat Sodium Chloride 0.9% [Saline Flush] 10 ml FLUSH ASDIRECTED PRN Sodium Chloride 0.9% [Saline Flush] 2.5 ml FLUSH ASDIRECTED PRN Sodium Chloride 0.9% [Saline Flush] 2.5 ml FLUSH ASDIRECTED PRN Saline Lock Insert [OM.PC] Stat
[2017-12-07 01:54] LABS: CHLORIDE,CL 106 mmol/L (98-107); SODIUM,NA 139 mmol/L (136-145)
[2017-12-07] MEDS ORDERED: Morphine 2 MG/ML Syringe IVPUSH ONE (01:58)
[2017-12-07] MEDS ORDERED: Ondansetron 4 MG/2 ML SDV IVPUSH ONE (02:00)
[2017-12-07] MEDS ORDERED: HYDROmorphone 1 MG/ML Syringe IVPUSH ONE (02:40)
[2017-12-07] MEDS ORDERED: Temazepam 15 MG Cap PO PRN (03:56)
[2017-12-07] MEDS ORDERED: Ondansetron 4 MG/2 ML SDV IVPUSH PRN (03:56)
[2017-12-07] MEDS ORDERED: Acetaminophen 325 MG Tab PO PRN (03:56)
[2017-12-07] MEDS ORDERED: Acetaminophen/HYDROcodone 325-5 MG Tab PO PRN (03:56)
[2017-12-07] MEDS ORDERED: HYDROmorphone 2 MG/ML SDV IVPUSH PRN (03:56)
[2017-12-07] MEDS ORDERED: Ondansetron 4 MG Tab.DIS PO PRN (03:56)
[2017-12-07] MEDS ORDERED: Heparin Sodium 5,000 Units/ML Vial SUBCUT SCH (04:00)
[2017-12-07 05:55] LABS: CHLORIDE,CL 109 mmol/L (98-107); SODIUM,NA 142 mmol/L (136-145)
[2017-12-07] MEDS ORDERED: HYDROmorphone 1 MG/ML Syringe IVPUSH PRN (07:27)
--- NOTE | 2017-12-07 08:06 | PCM.HP ---
H&P History of Present Illness - General Date of Service: 12/07/17 Admit Problem/Dx: Admission Diagnosis/Problem Admission Diagnosis/Problem Atypical chest pain Source of Information: Patient History Limitations: Reports: No Limitations - History of Present Illness Initial Comments - Free Text/Narative: This 62 year old female with pmh of non-Hodgkin's lymphoma, with last chemotherapy 8 days ago, diverticulitis resulting in coloectomy and colostomy after first round of chemotherapy in 2017, presented to ED with complaint of chest tightness starting at midnight last night, with then moved to bilateral arms and then all over her body, which was 10/10 pain by the time she arrived to the ED. She did receive Neupogen after her chemotherapy this round. The pain was constant and sharp and has continued since presenting to the emergency department. She denies any associated shortness of breat nausea, vomiting, diaphoresis or radiation into the jaw. She denies any palpitations, syncopal episodes, abdominal pain, diarrhea, or focal neurologic deficits. She has noticed some leg swelling bilaterally which is more chronic nature. She reported when she was having this pain, "I freaked out, I think with the pain." She denies cardiopulmonary disease. She reports a flare of her psoriasis since starting chemotherapy. No abdominal pain or black or bloody stools and no bleeding noted. In the ED leukopenia 3.55, ALT 94, UA negative, CXR unremarkable, EKG SR with no acute ischemic changes. D-dimer negative. Patient continued to have chest/ back pain without EKG changes and negative troponin. She was given Dilaudid for pain, which finally helped with the pain. She was admitted for atypical chest pain. middle chest Pain Score (Numeric/FACES): 2 - Related Data Allergies/Adverse Reactions: Allergies Allergy/AdvReac Type Severity Reaction Status Date / Time aspirin Allergy Anaphylactic Verified 12/07/17 01:09 Shock codeine Allergy Nausea Verified 12/07/17 01:09 erythromycin estolate Allergy Cannot Verified 12/07/17 01:09 [From Ilosone] Remember gluten Allergy Rash Verified 12/07/17 01:09 Penicillins Allergy Cannot Verified 12/07/17 01:09 Remember propoxyphene HCl Allergy Nausea Verified 12/07/17 01:09 [From Darvon] Home Medications: Home Meds Lactobacillus Acidophilus [Probiotic] 0 mg PO DAILY 04/05/16 [History] Multivitamin [Multiple Vitamins] 0 mg PO DAILY 04/05/16 [History] [place]-3/DHA/Epa/Fish Oil [[place] 3 500 Softgel] 1,000 mg PO DAILY 04/05/16 [ History] Loratadine 10 mg PO DAILY PRN #30 tablet 12/07/17 [Rx] Past Medical History HEENT History: Reports: None Other HEENT History: wears glasses/contacts Cardiovascular History: Reports: None. Denies: CAD, High Cholesterol, Hypertension, [place] Respiratory History: Reports: None. Denies: Asthma, COPD, PE Gastrointestinal History: Reports: Diverticulosis (with diverticulitis, perforated colon with coloectomy and colostomy.) Other Gastrointestinal History: Diverticulitis Genitourinary History: Reports: None. Denies: Chronic Renal Insuffiency EMT P History: Reports: None Musculoskeletal History: Reports: Fracture Other Musculoskeletal History: hx of fx wrist Neurological History: Reports: None Psychiatric History: Reports: None Endocrine/Metabolic History: Reports: None. Denies: Diabetes, Type II Hematologic History: Reports: None Immunologic History: Reports: None Oncologic (Cancer) History: Reports: Non-Hodgkin's Lymphoma Other Oncologic History: non-hodgkin's lymphoma Dermatologic History: Reports: Psoriasis - Infectious Disease History Infectious Disease History: Reports: Shingles - Past Surgical History Head Surgeries/Procedures: Reports: None HEENT Surgical History: Reports: Oral Surgery, Tonsillectomy Cardiovascular Surgical History: Reports: None GI Surgical History: Reports: Colon, Colostomy Musculoskeletal Surgical History: Reports: None Social & Family History - Family History Family Medical History: Noncontributory Respiratory: Reports: None - Tobacco Use Smoking Status *Q: Never Smoker Second Hand Smoke Exposure: No - Caffeine Use Caffeine Use: Reports: None - Recreational Drug Use Recreational Drug Use: No Drug Use in Last 12 Months: No - Living Situation & Occupation Living situation: Reports: H&P Review of Systems - Review of Systems: Review Of Systems: See Below General: Reports: No Symptoms. Denies: Fever, Chills, Malaise, Weakness, Fatigue HEENT: Reports: No Symptoms. Denies: Headaches, Sinus Congestion, Sore Throat, Vertigo Pulmonary: Reports: No Symptoms. Denies: Shortness of Breath, Cough, Sputum Cardiovascular: Reports: No Symptoms. Denies: Chest Pain, Palpitations, Edema, Lightheadedness Gastrointestinal: Reports: No Symptoms. Denies: Abdominal Pain, Black Stool, Bloody Stool, Decreased Appetite, Distension, Nausea Genitourinary: Reports: No Symptoms. Denies: Dysuria, Frequency, Burning, Pain Musculoskeletal: Reports: Other (all over body pain, much better now.) Neurological: Reports: No Symptoms Hematologic/Lymphatic: Reports: No Symptoms Immunologic: Reports: No Symptoms Exam - Exam Exam: See Below - Vital Signs Vital Signs: Last Vital Signs Temp 99.3 F 12/07/17 07:53 Pulse 75 12/07/17 07:53 Resp 16 12/07/17 07:53 BP 122/67 12/07/17 07:53 Pulse Ox 98 12/07/17 07:53 Weight: 58.649 kg - Exam General: Alert, Oriented, Cooperative, Other (all over body achiness, but much improved from admission early this morning. ) HEENT: Conjunctiva Clear Neck: Supple, Trachea Midline, 2 Lungs: Clear to Auscultation, Normal Respiratory Effort, Other (R sided port. No chest pain on palpation) Cardiovascular: Regular Rate, Regular Rhythm GI/Abdominal Exam: Normal Bowel Sounds, Soft, Non-Tender, No Organomegaly, No Distention, No Abnormal Bruit, No Mass, Pelvis Stable Extremities: Normal Inspection, Normal Range of Motion, Non-Tender, No Pedal Edema, Normal Capillary Refill Skin: Rash (psoriasis noted throughout skin, including extremities and trunk.) Neuro Extensive - Mental Status: Alert, Oriented x3, Normal Mood/Affect, Normal Cognition Psychiatric: Alert, Normal Affect, Normal Mood - Patient Data Lab Results Last 24 hrs: Laboratory Results - last 24 hr 12/07/17 12/07/17 12/07/17 Range/Units 04:50 04:50 07:12 WBC 3.73 L (4.0-11.0) K/uL RBC 3.32 L (4.30-5.90) M/uL Hgb 10.0 L (12.0-16.0) g/dL Hct 29.9 L (36.0-46.0) % MCV 90.1 (80.0-98.0) fL MCH 30.1 (27.0-32.0) pg MCHC 33.4 (31.0-37.0) g/dL RDW Std Deviation 51.4 (28.0-62.0) fl RDW Coeff of Carlos 15 (11.0-15.0) % Plt Count 83 L (150-400) K/uL MPV 10.50 (7.40-12.00) fL Nucleated RBC % 0.0 /100WBC Nucleated RBCs # 0 K/uL Sodium 142 (136-145) mmol/L Potassium 3.9 (3.5-5.1) mmol/L Chloride 109 H (98-107) mmol/L Carbon Dioxide 25.6 (21.0-32.0) mmol/L BUN 17 (7.0-18.0) mg/dL Creatinine 0.6 (0.6-1.0) mg/dL Est Cr Clr Drug Dosing 86.10 mL/min Estimated GFR (MDRD) > 60.0 ml/min Glucose 101 (74-106) mg/dL Calcium 8.1 L (8.5-10.1) mg/dL Magnesium 1.5 (1.5-2.0) mg/dL Total Bilirubin 0.3 (0.2-1.0) mg/dL AST 10 L (15-37) IU/L ALT 16 (14-63) IU/L Alkaline Phosphatase 73 (46-116) U/L Troponin I < 0.050 (0.000-0.056) ng/mL Total Protein 5.2 L (6.4-8.2) g/dL Albumin 3.2 L (3.4-5.0) g/dL Globulin 2.0 (2.0-3.5) g/dL Albumin/Globulin Ratio 1.6 (1.3-2.8) Result Diagrams: 12/07/17 04:50 12/07/17 04:50 EKG INTERPRETATION Rhythm: NSR Rate (Beats/Min): 80 P-Wave: Present QRS: Normal ST-T: Normal QT: Normal *Q Meaningful Use (ADM) - VTE *Q VTE Criteria *Q: - Stroke *Q Stroke Criteria *Q: - AMI *Q AMI Criteria *Q: - Problem List (1) Atypical chest pain SNOMED Code(s): 128924923 ICD Code: R07.89 - OTHER CHEST PAIN Status: Acute Current Visit: Yes (2) Bone pain SNOMED Code(s): 16247325 ICD Code: M89.8X9 - OTHER SPECIFIED DISORDERS OF BONE, UNSPECIFIED SITE Status: Acute Current Visit: Yes (3) Non-Hodgkin lymphoma SNOMED Code(s): 895557536 ICD Code: C85.90 - NON-HODGKIN LYMPHOMA, UNSPECIFIED, UNSPECIFIED SITE Status: Chronic Current Visit: Yes Qualifiers: Non-Hodgkin lymphoma type: unspecified type Lymphoma site: multiple regions Qualified Code(s): C85.98 - Non-Hodgkin lymphoma, unspecified, lymph nodes of multiple sites (4) Colostomy in place SNOMED Code(s): 343254247 ICD Code: Z93.3 - COLOSTOMY STATUS Status: Chronic Current Visit: Yes Problem List Initiated/Reviewed/Updated: Yes Orders Last 24hrs: Active Orders 24 hr Category Date Time Status Patient Status [ADT] Routine ADT 12/07/17 03:56 Active Antiembolic Devices [RC] PER UNIT ROUTINE Care 12/07/17 03:58 Active Telemetry Monitoring [Cardiac Monitoring] [RC] . Care 12/07/17 03:11 Active DIRECTED Up With Assistance [RC] ASDIRECTED Care 12/07/17 03:56 Active VTE/DVT Education [RC] PER UNIT ROUTINE Care 12/07/17 03:56 Active Vital Signs [RC] Q4H Care 12/07/17 03:56 Active Heart Healthy Diet [DIET] Diet 12/07/17 Breakfast Active CBC W/O DIFF,HEMOGRAM [HEME] AM Lab 12/08/17 05:11 Ordered CBC W/O DIFF,HEMOGRAM [HEME] AM Lab 12/09/17 05:11 Ordered COMPREHENSIVE METABOLIC PN,CMP [CHEM] AM Lab 12/08/17 05:11 Ordered COMPREHENSIVE METABOLIC PN,CMP [CHEM] AM Lab 12/09/17 05:11 Ordered TROPONIN I [CHEM] Q6H Lab 12/07/17 13:00 Ordered Acetaminophen [Tylenol] Med 12/07/17 03:56 Active 650 mg PO Q4H PRN Acetaminophen/HYDROcodone [[place] 325-5 MG] Med 12/07/17 03:56 Active 1 tab PO Q4H PRN HYDROmorphone [Dilaudid] Med 12/07/17 07:27 Active 1 mg IVPUSH Q2H PRN Heparin Sodium Med 12/07/17 04:00 Active 5,000 units SUBCUT Q12H Ondansetron [Zofran ODT] Med 12/07/17 03:56 Active 4 mg PO Q4H PRN Ondansetron [Zofran] Med 12/07/17 03:56 Active 4 mg IVPUSH Q4H PRN Temazepam [Restoril] Med 12/07/17 03:56 Active 15 mg PO BEDTIME PRN Sequential Compression Device [OM.PC] Per Unit Routine Oth 12/07/17 03:57 Ordered Resuscitation Status Routine Resus Stat 12/07/17 03:56 Ordered Medication Orders Acetaminophen (Tylenol) 650 mg PO Q4H PRN PRN Reason: Pain (Mild 1-3)/fever Hydrocodone Bitart/Acetaminophen ([place] 325-5 Mg) 1 tab PO Q4H PRN PRN Reason: Pain (moderate 4-6) Heparin Sodium (Porcine) (Heparin Sodium) 5,000 units SUBCUT Q12H BATSHEVA Last Admin: 12/07/17 04:11 Dose: 5,000 units Hydromorphone HCl (Dilaudid) 1 mg IVPUSH Q2H PRN PRN Reason: Pain (severe 7-10) Ondansetron HCl (Zofran Odt) 4 mg PO Q4H PRN PRN Reason: nausea, able to take PO Ondansetron HCl (Zofran) 4 mg IVPUSH Q4H PRN PRN Reason: Nausea Sodium Chloride (Saline Flush) 2.5 ml FLUSH ASDIRECTED PRN PRN Reason: Keep Vein Open Sodium Chloride (Saline Flush) 10 ml FLUSH ASDIRECTED PRN PRN Reason: Keep Vein Open Sodium Chloride (Saline Flush) 2.5 ml FLUSH ASDIRECTED PRN PRN Reason: Keep Vein Open Temazepam (Restoril) 15 mg PO BEDTIME PRN PRN Reason: Sleep Assessment/Plan Comment:: This 62 year old female admitted with atypical chest pain 1. Atypical chest pain: After further investigation, the pain was everywhere and a throbbing nature and severe. Now has improved. Likely secondary to Neupogen administration and bone pain from this. Electrolytes are WNL. ACS unlikely, but will trend last troponin. First two negative. 2. Non-Hodgkin lymphoma- currently being treated in [place], [place]. Electrolytes are WNL. Leukopenia noted,but stable. No fevers. Platelets noted to be 83,000, no active bleeding. Dispo: Later today Discharge Plan: Last troponin negative. Continues to have some achiness is shoulders and mid back, but is much better. Likely secondary to Neupogen. She is very eager to be discharged home today. She was encouraged to use Tylenol and her [place] for pain PRN and also trial Loratidine. She will follow up with PCP, Dr Tirado next week and the following week she is to follow up with Dr. Shields, Oncology in [place] for another round of chemotherapy. She was encouraged to return to ED or clinic if concerns should arise.
--- NOTE | 2017-12-07 11:02 | CR ---
EXAM DATE: 12/07/17 PATIENT'S AGE: 62 Patient: HARRY CADENA Facility: [place], [place] Site . Site : 1955 Study: XRay Chest [id number]/15/2018 1:29:08 AM Ordering Physician: Jerome Franco Final Report: INDICATION: Shortness of breath. Chest pain. COMPARISON: None. FINDINGS/IMPRESSION: The lungs are clear and no acute intrathoracic abnormalities are identified. Heart size and pulmonary vasculature appear normal. No pleural effusions. Port-A -Cath extends into the mid SVC. Included bones are unremarkable. Dictated by Grayson Petersen MD @ 12/07/2017 1:53:42 AM Dictated by: Grayson Petersen MD @ 12/07/2017 01:54:25 (Electronic Signature) Report Signed by Proxy. [facility]
[2017-12-07 11:57] VITALS: BP 118/75
== END 2017-12-07 16:00 | disposition home or self-care (01) ==
LOC: MW.ED 00:59 → MW.MS 03:32
PROVIDERS: ADMIT Family Medicine; ATTEND Family Medicine
DX: R07.89 Other chest pain (principal); C85.90 Non-Hodgkin lymphoma, unspecified, unspecified site; L40.9 Psoriasis, unspecified; M89.8X9 Other specified disorders of bone, unspecified site; Z93.3 Colostomy status; Z88.6 Allergy status to analgesic agent; Z88.5 Allergy status to narcotic agent; Z88.1 Allergy status to other antibiotic agents; Z88.0 Allergy status to penicillin; Z91.018 Allergy to other foods; Z79.899 Other long term (current) drug therapy
CPT/HCPCS: 36415; 71045; 80053; 81001; 83735; 84484; 85025; 85027; 85379; 85610; 96361; 96374; 96375; 99285; J1170; J1644; J2270; J2405; J7040; 96372; 99284; G0378

== ENCOUNTER 2019-09-07 14:15 | Day surgery (SDC) | payer BC ==
[2019-09-07] MEDS ORDERED: Sodium Chloride 0.9% 1,000 ML IV ONE (14:39)
[2019-09-07] MEDS ORDERED: Morphine 2 MG/ML Syringe IVPUSH ONE (14:40)
[2019-09-07] MEDS ORDERED: Ondansetron 4 MG/2 ML SDV IVPUSH ONE (14:40)
--- NOTE | 2019-09-07 15:14 | EDM.PDOC ---
ED HPI GENERAL MEDICAL PROBLEM - General Chief Complaint: Genitourinary Problem Stated Complaint: PAIN ON SIDE AND LOWER BACK Time Seen by Provider: 09/07/19 14:26 Source of Information: Reports: Patient History Limitations: Reports: No Limitations - History of Present Illness INITIAL COMMENTS - FREE TEXT/NARRATIVE: HISTORY AND PHYSICAL: History of present illness: Patient is a 64-year-old female presents to the ED today with concern of right flank pain that started this afternoon. Patient states she's also had nausea and one episode of vomiting due to the pain. 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 Patient states she is in remission from her lymphoma and has had to clear PET scans according the patient. Patient states she has not taken anything for her symptoms. Patient denies any other symptoms or concerns. Patient denies fever, chills, chest pain, shortness of breath, or cough. Denies headache, neck stiff ness, change in vision, syncope, or near syncope. Denies nausea, vomiting, diarrhea, constipation, or dysuria. Has not noted any blood in urine or stool. Patient has been eating and drinking appropriately. Review of systems: As per history of present illness and below otherwise all systems reviewed and negative. Past medical history: As per history of present illness and as reviewed below otherwise noncontributory. Surgical history: As per history of present illness and as reviewed below otherwise noncontributory. Social history: See social history for further information Family history: As per history of present illness and as reviewed below otherwise noncontributory. Physical exam: General: Patient is alert, oriented, and in no acute distress. Patient sitting on exam table and does have an episode of emesis during the exam. Patient tearful on exam. HEENT: Atraumatic, normocephalic, pupils equal and reactive bilaterally, negative for conjunctival pallor or scleral icterus, mucous membranes moist, TMs normal bilaterally, throat clear, neck supple, nontender, trachea midline. No drooling or trismus noted. No meningeal signs. No hot potato voice noted. Lungs: Clear to auscultation, breath sounds equal bilaterally, chest nontender. Heart: S1S2, regular rate and rhythm without overt murmur Abdomen: Soft, nondistended, nontender. Negative for masses or hepatosplenomegaly. Negative for costovertebral tenderness. Pelvis: Stable nontender. Genitourinary: Deferred. Rectal: Deferred. Skin: Intact, warm, dry. No lesions or rashes noted. Extremities: Atraumatic, negative for cords or calf pain. Neurovascular unremarkable. Neuro: Awake, alert, oriented. Cranial nerves II through XII unremarkable. Cerebellum unremarkable. Motor and sensory unremarkable throughout. Exam nonfocal. Notes: Dr. Mtz, urology consulted on patient and has come in to personally see patinet. See his official consult note for further treatment and disposition. Patient taken to the OR. Voices understanding and is agreeable to plan of care. Denies any further questions or concerns at this time. Diagnostics: EKG, CBC, CMP, UA, chest x-ray, troponin, lipase, abdominal pelvic CT, lactate, blood cultures x 2 Therapeutics: Morphine, Zofran, NS, Ciprofloxacin Impression: Ureterolithiasis Urinary Tract Infection Plan: Transfer to the operating room to Dr. Mtz. Definitive disposition and diagnosis as appropriate pending reevaluation and review of above. Right Flank Pain Score (Numeric/FACES): 8 - Related Data Allergies Allergy/AdvReac Type Severity Reaction Status Date / Time vancomycin Allergy Mild Rash Verified 09/07/19 14:25 aspirin Allergy Anaphylactic Verified 09/07/19 14:25 Shock codeine Allergy Nausea Verified 09/07/19 14:25 erythromycin estolate Allergy Cannot Verified 09/07/19 14:25 [From Ilosone] Remember gluten Allergy Rash Verified 09/07/19 14:25 meperidine [From Demerol] Allergy Nausea Verified 09/07/19 14:25 Penicillins Allergy Cannot Verified 09/07/19 14:25 Remember propoxyphene HCl Allergy Nausea Verified 09/07/19 14:25 [From Darvon] Home Meds: Home Meds Lactobacillus Acidophilus [Probiotic] 1 cap PO DAILY 04/05/16 [History] Multivitamin [Multiple Vitamins] 1 tab PO DAILY 04/05/16 [History] [place]-3/DHA/Epa/Fish Oil [[place] 3 500 Softgel] 1,000 mg PO DAILY 04/05/16 [ History] Past Medical History HEENT History: Reports: Allergic Rhinitis Other HEENT History: wears glasses/contacts Cardiovascular History: Reports: None Respiratory History: Reports: None Gastrointestinal History: Reports: Diverticulosis, Other (See Below) Other Gastrointestinal History: occasional heartburn- only if she eats gluten Genitourinary History: Reports: None 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 SERVICES COUNSELOR History: hysterectomy Musculoskeletal History: Reports: Fracture Other Musculoskeletal History: hx of fx wrist Neurological History: Reports: Other (See Below) Other Neuro History: hx of motion sickness Psychiatric History: Reports: None Endocrine/Metabolic History: Reports: None Hematologic History: Reports: Blood Transfusion(s) Immunologic History: Reports: None Oncologic (Cancer) History: Reports: Lymphoma Other Oncologic History: 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 Dermatologic History: Reports: Psoriasis - Infectious Disease History Infectious Disease History: Reports: Chicken Pox - Past Surgical History Head Surgeries/Procedures: Reports: None HEENT Surgical History: Reports: Oral Surgery, Tonsillectomy Other HEENT Surgeries/Procedures: wisdom teeth Cardiovascular Surgical History: Reports: Vascular Surgery Other Cardiovascular Surgeries/Procedures: Insertion of Port-a-Cath GI Surgical History: Reports: Appendectomy, Colostomy, Small Bowel, Other (See Below) Other GI Surgeries/Procedures: Laparotomy to repair bowel perforation (due to ruptured diverticulum)- had Colostomy- later reversed, Inguinal Lymph node biopsy Female Surgical History: Reports: Hysterectomy Social & Family History - Family History Family Medical History: Noncontributory Respiratory: Reports: None - Tobacco Use Smoking Status *Q: Never Smoker Second Hand Smoke Exposure: No - Caffeine Use Caffeine Use: Reports: Coffee - Recreational Drug Use Recreational Drug Use: No - Living Situation & Occupation Living situation: Reports: ED ROS GENERAL - Review of Systems Review Of Systems: Comprehensive ROS is negative, except as noted in HPI. ED EXAM, GENERAL - Physical Exam Exam: See Below (see dictation) Course - Vital Signs Last Recorded V/S: Last Vital Signs Temp 97.7 F 09/07/19 15:30 Pulse 83 09/07/19 15:59 Resp 20 09/07/19 14:25 BP 131/76 09/07/19 15:59 Pulse Ox 97 09/07/19 15:59 - Orders/Labs/Meds Orders: Active Orders 24 hr Category Date Time Status EKG Documentation Completion [RC] STAT Care 09/07/19 14:41 Active Notify Provider Consults [RC] ASDIRECTED Care 09/07/19 16:04 Active Consult to Physician [CONS] Stat Cons 09/07/19 16:02 Active CULTURE BLOOD [BC] Stat Lab 09/07/19 15:22 Received CULTURE BLOOD [BC] Stat Lab 09/07/19 16:02 Received CULTURE URINE [RM] Stat Lab 09/07/19 15:20 Received Ciprofloxacin in D5W [Cipro in D5W 400 MG/200 ML] 400 Med 09/07/19 16:24 Active mg Premix Bag 1 bag IV NOW Blood Culture x2 Reflex Set [OM.PC] Stat Oth 09/07/19 15:06 Ordered Medication Orders Ciprofloxacin/Dextrose 400 mg/ (Premix) 200 mls @ 200 mls/hr IV NOW STA Stop: 09/07/19 17:23 Labs: Laboratory Tests 09/07/19 09/07/19 09/07/19 Range/Units 14:21 14:21 14:21 WBC 4.59 (4.0-11.0) K/uL RBC 4.51 (4.30-5.90) M/uL Hgb 13.9 (12.0-16.0) g/dL Hct 41.3 (36.0-46.0) % MCV 91.6 (80.0-98.0) fL MCH 30.8 (27.0-32.0) pg MCHC 33.7 (31.0-37.0) g/dL RDW Std Deviation 44.7 (28.0-62.0) fl RDW Coeff of [place] 14 (11.0-15.0) % Plt Count 143 L (150-400) K/uL MPV 10.60 (7.40-12.00) fL Neut % (Auto) 89.1 H (48.0-80.0) % Lymph % (Auto) 8.3 L (16.0-40.0) % [place] % (Auto) 0.9 (0.0-15.0) % Eos % (Auto) 1.7 (0.0-7.0) % Baso % (Auto) 0.0 (0.0-1.5) % Neut # (Auto) 4.1 (1.4-5.7) K/uL Lymph # (Auto) 0.4 L (0.6-2.4) K/uL [place] # (Auto) 0.0 (0.0-0.8) K/uL Eos # (Auto) 0.1 (0.0-0.7) K/uL Baso # (Auto) 0.0 (0.0-0.1) K/uL Nucleated RBC % 0.0 /100WBC Nucleated RBCs # 0 K/uL Lactate 1.7 (0.20-2.00) mmol/L Sodium 144 (136-145) mmol/L Potassium 3.8 (3.5-5.1) mmol/L Chloride 107 (98-107) mmol/L Carbon Dioxide 26.8 (21.0-32.0) mmol/L BUN 22 H (7.0-18.0) mg/dL Creatinine 0.8 (0.6-1.0) mg/dL Est Cr Clr Drug Dosing 62.96 mL/min Estimated GFR (MDRD) > 60.0 ml/min Glucose 125 H (74-106) mg/dL Calcium 9.7 (8.5-10.1) mg/dL Total Bilirubin 0.3 (0.2-1.0) mg/dL AST 16 (15-37) IU/L ALT 24 (14-63) IU/L Alkaline Phosphatase 76 (46-116) U/L Troponin I < 0.050 (0.000-0.056) ng/mL Total Protein 7.3 (6.4-8.2) g/dL Albumin 4.0 (3.4-5.0) g/dL Globulin 3.3 (2.6-4.0) g/dL Albumin/Globulin Ratio 1.2 (0.9-1.6) Lipase 106 (73-393) U/L Urine Color Urine Appearance Urine pH (5.0-8.0) Ur Specific [place] (1.001-1.035) Urine Protein (NEGATIVE) mg/dL Urine Glucose (UA) (NEGATIVE) mg/dL Urine Ketones (NEGATIVE) mg/dL Urine Occult Blood (NEGATIVE) Urine Nitrite (NEGATIVE) Urine Bilirubin (NEGATIVE) Urine Urobilinogen (<2.0) EU/dL Ur Leukocyte Esterase (NEGATIVE) Urine RBC (0-2/HPF) Urine WBC (0-5/HPF) Ur Epithelial Cells (NONE-FEW) Urine Bacteria (NEGATIVE) Urine Mucus (NONE-MOD) //19 Range/Units 15:20 WBC (4.0-11.0) K/uL RBC (4.30-5.90) M/uL Hgb (12.0-16.0) g/dL Hct (36.0-46.0) % MCV (80.0-98.0) fL MCH (27.0-32.0) pg MCHC (31.0-37.0) g/dL RDW Std Deviation (28.0-62.0) fl RDW Coeff of [place] (11.0-15.0) % Plt Count (150-400) K/uL MPV (7.40-12.00) fL Neut % (Auto) (48.0-80.0) % Lymph % (Auto) (16.0-40.0) % [place] % (Auto) (0.0-15.0) % Eos % (Auto) (0.0-7.0) % Baso % (Auto) (0.0-1.5) % Neut # (Auto) (1.4-5.7) K/uL Lymph # (Auto) (0.6-2.4) K/uL [place] # (Auto) (0.0-0.8) K/uL Eos # (Auto) (0.0-0.7) K/uL Baso # (Auto) (0.0-0.1) K/uL Nucleated RBC % /100WBC Nucleated RBCs # K/uL Lactate (0.20-2.00) mmol/L Sodium (136-145) mmol/L Potassium (3.5-5.1) mmol/L Chloride (98-107) mmol/L Carbon Dioxide (21.0-32.0) mmol/L BUN (7.0-18.0) mg/dL Creatinine (0.6-1.0) mg/dL Est Cr Clr Drug Dosing mL/min Estimated GFR (MDRD) ml/min Glucose (74-106) mg/dL Calcium (8.5-10.1) mg/dL Total Bilirubin (0.2-1.0) mg/dL AST (15-37) IU/L ALT (14-63) IU/L Alkaline Phosphatase (46-116) U/L Troponin I (0.000-0.056) ng/mL Total Protein (6.4-8.2) g/dL Albumin (3.4-5.0) g/dL Globulin (2.6-4.0) g/dL Albumin/Globulin Ratio (0.9-1.6) Lipase (73-393) U/L Urine Color YELLOW Urine Appearance SLT CLOUDY Urine pH 5.5 (5.0-8.0) Ur Specific [place] >= 1.030 (1.001-1.035) Urine Protein NEGATIVE (NEGATIVE) mg/dL Urine Glucose (UA) NEGATIVE (NEGATIVE) mg/dL Urine Ketones NEGATIVE (NEGATIVE) mg/dL Urine Occult Blood TRACE-INTACT H (NEGATIVE) Urine Nitrite POSITIVE H (NEGATIVE) Urine Bilirubin NEGATIVE (NEGATIVE) Urine Urobilinogen 0.2 (<2.0) EU/dL Ur Leukocyte Esterase SMALL H (NEGATIVE) Urine RBC 0-2 (0-2/HPF) Urine WBC 30-40 (0-5/HPF) Ur Epithelial Cells FEW (NONE-FEW) Urine Bacteria FEW (NEGATIVE) Urine Mucus 2 (NONE-MOD) Meds: Medications Generic Name Dose Route Start Last Admin Trade Name Freq PRN Reason Stop Dose Admin Ciprofloxacin/Dextrose 400 mg/ 200 mls @ 200 mls/hr 09/07/19 16:24 Premix IV 09/07/19 17:23 NOW STA Discontinued Medications Generic Name Dose Route Start Last Admin Trade Name Freq PRN Reason Stop Dose Admin Sodium Chloride 1,000 mls @ 999 mls/hr 09/07/19 14:39 09/07/19 15:25 Normal Saline IV 09/07/19 15:39 999 mls/hr BOLUS ONE Administration Morphine Sulfate 2 mg 09/07/19 14:40 09/07/19 15:25 Morphine IVPUSH 09/07/19 14:41 2 mg ONETIME ONE Administration Ondansetron HCl 4 mg 09/07/19 14:40 09/07/19 15:25 Zofran IVPUSH 09/07/19 14:41 4 mg ONETIME ONE Administration Departure - Departure Time of Disposition: 16:28 Disposition: Still A Patient 30 Clinical Impression: Ureterolithiasis Urinary tract infection Qualifiers: Urinary tract infection type: acute cystitis Hematuria presence: with hematuria Qualified Code(s): N30.01 - Acute cystitis with hematuria - Discharge Information Sepsis Event Note - Evaluation Sepsis Screening Result: No Definite Risk - Focused Exam Vital Signs: Vital Signs Temp Pulse Resp BP Pulse Ox 09/07/19 15:59 83 131/76 97 09/07/19 15:30 97.7 F 09/07/19 14:25 98.5 F 68 20 158/68 H 100 Date Exam was Performed: 09/07/19 Time Exam was Performed: 16:27 - My Orders Last 24 Hours: My Active Orders 09/07/19 14:41 EKG Documentation Completion [RC] STAT 09/07/19 15:06 Blood Culture x2 Reflex Set [OM.PC] Stat 09/07/19 15:20 CULTURE URINE [RM] Stat 09/07/19 15:22 CULTURE BLOOD [BC] Stat 09/07/19 16:02 Consult to Physician [CONS] Stat CULTURE BLOOD [BC] Stat 09/07/19 16:04 Notify Provider Consults [RC] ASDIRECTED 09/07/19 16:24 Ciprofloxacin in D5W [Cipro in D5W 400 MG/200 ML] 400 mg Premix Bag 1 bag IV NOW - Assessment/Plan Last 24 Hours: My Active Orders 09/07/19 14:41 EKG Documentation Completion [RC] STAT 09/07/19 15:06 Blood Culture x2 Reflex Set [OM.PC] Stat 09/07/19 15:20 CULTURE URINE [RM] Stat 09/07/19 15:22 CULTURE BLOOD [BC] Stat 09/07/19 16:02 Consult to Physician [CONS] Stat CULTURE BLOOD [BC] Stat 09/07/19 16:04 Notify Provider Consults [RC] ASDIRECTED 09/07/19 16:24 Ciprofloxacin in D5W [Cipro in D5W 400 MG/200 ML] 400 mg Premix Bag 1 bag IV NOW
[2019-09-07 15:33] LABS: BLOOD UREA NITROGEN,BUN 22 mg/dL (7.0-18.0); CARBON DIOXIDE,CO2 26.8 mmol/L (21.0-32.0); CHLORIDE,CL 107 mmol/L (98-107); GLUCOSE RANDOM 125 mg/dL (74-106); LIPASE 106 U/L (73-393); POTASSIUM,K 3.8 mmol/L (3.5-5.1); SODIUM,NA 144 mmol/L (136-145)
--- NOTE | 2019-09-07 15:36 | CR ---
Indication: Vomiting. Technique: A single AP portable view of the chest. Comparison: December 07, 2017. Findings: The heart is normal in size. The lungs are clear. No infiltrate, pleural effusion, or pneumothorax is identified. Impression: No acute cardiopulmonary process Dictated by Audrey Parham MD @ Sep 07 2019 3:32PM Signed by Dr. Audrey Parham @ Sep 07 2019 3:34PM
--- NOTE | 2019-09-07 15:54 | CT ---
INDICATION: Abdominal pain. Previous colonic resection. Diverticulitis. TECHNIQUE: CT of abdomen and pelvis performed without oral or IV contrast. COMPARISON: 06/19/2019 CT. FINDINGS: Saul osteopenia. Tiny stone in the gallbladder stable. Moderate vascular calcifications. Moderate scoliosis. Ill-defined sclerosis and lucency in the left iliac bone measures approximately 2 cm and is stable. Scattered nodularity in both breasts can be correlated to breast imaging. Broad-based anterior convexity in the lower anterior abdominal and upper anterior pelvic wall consistent with abdominal/pelvic wall weakness with a small periumbilical hernia. This is stable. Small stone left lower kidney at has slightly larger. Benign nodular thickening left adrenal gland should be related to hyperplasia and/or adenomas. [id number] hydronephrosis of right kidney and mild ureteral dilatation due to a new partially obstructing stone within the right distal ureter on image 113 with the stone measuring 4 mm. Minimal stranding about the right renal pelvis likely related to edema due to the and partially obstructing stone. Hysterectomy. Very small hiatal hernia. Increased number of small lymph nodes in the abdominal retroperitoneum. Mild adenopathy in the inguinal regions similar to prior exam. Few small to upper limits of normal distal external iliac chain pelvic lymph nodes. Postsurgical changes rectal sigmoid colon with primary anastomosis. Clusters of small to mildly prominent right pelvic mesenteric lymph nodes likely inflammatory reactive in nature. Mildly prominent clusters of similar mesenteric lymph nodes in the left abdominal mesentery surrounded by hazy increased density the related inflammation or edema with these lymph nodes extending into the left pelvic mesenteric. Remainder negative. IMPRESSION: 1. New 4 mm partially obstructing stone in the distal right ureter resulting in mild to moderate hydronephrosis and other findings of ureteral obstruction as described above. 2. Mild lymph node prominence in the abdominal and pelvic mesentery and in both inguinal regions nonspecific. 3. Postsurgical changes rectal sigmoid colon stable. 4. Small stone left kidney slightly larger. 5. Not mentioned above are changes of colonic diverticulosis without evidence diverticulitis. 6. Cholelithiasis. Other findings as above. Please note that all CT scans at this facility use dose modulation, iterative reconstruction, and/or weight-based dosing when appropriate to reduce radiation dose to as low as reasonably achievable. Dictated by Valdo Charlton MD @ Sep 07 2019 3:49PM Signed by Dr. Valdo Charlton @ Sep 07 2019 3:52PM
[2019-09-07] MEDS ORDERED: Ciprofloxacin in D5W 400 MG in Premix Bag 1 BAG IV STA ×2 (16:24)
--- NOTE | 2019-09-07 16:54 | PCM.PREANE ---
Preanesthetic Assessment - Procedure Proposed Procedure: cycto - Anesthesia/Transfusion/Family Hx Transfusion History: Prior Transfusion Without Reaction Intubation History: Unknown - Review of Systems General: No Symptoms Pulmonary: No Symptoms Cardiovascular: No Symptoms Gastrointestinal: No Symptoms Neurological: No Symptoms - Physical Assessment Vital Signs: Last Vital Signs Temp 36.5 C 09/07/19 15:30 Pulse 83 09/07/19 15:59 Resp 20 09/07/19 14:25 BP 131/76 09/07/19 15:59 Pulse Ox 97 09/07/19 15:59 Height: 1.63 m Weight: 72.575 kg - Lab Values: Laboratory Last Values WBC 4.59 K/uL (4.0-11.0) 09/07/19 14:21 RBC 4.51 M/uL (4.30-5.90) 09/07/19 14:21 Hgb 13.9 g/dL (12.0-16.0) 09/07/19 14:21 Hct 41.3 % (36.0-46.0) 09/07/19 14:21 MCV 91.6 fL (80.0-98.0) 09/07/19 14:21 MCH 30.8 pg (27.0-32.0) 09/07/19 14:21 MCHC 33.7 g/dL (31.0-37.0) 09/07/19 14:21 RDW Std Deviation 44.7 fl (28.0-62.0) 09/07/19 14:21 RDW Coeff of [place] 14 % (11.0-15.0) 09/07/19 14:21 Plt Count 143 K/uL (150-400) L 09/07/19 14:21 MPV 10.60 fL (7.40-12.00) 09/07/19 14:21 Neut % (Auto) 89.1 % (48.0-80.0) H 09/07/19 14:21 Lymph % (Auto) 8.3 % (16.0-40.0) L 09/07/19 14:21 [place] % (Auto) 0.9 % (0.0-15.0) 09/07/19 14:21 Eos % (Auto) 1.7 % (0.0-7.0) 09/07/19 14:21 Baso % (Auto) 0.0 % (0.0-1.5) 09/07/19 14:21 Neut # (Auto) 4.1 K/uL (1.4-5.7) 09/07/19 14:21 Lymph # (Auto) 0.4 K/uL (0.6-2.4) L 09/07/19 14:21 [place] # (Auto) 0.0 K/uL (0.0-0.8) 09/07/19 14:21 Eos # (Auto) 0.1 K/uL (0.0-0.7) 09/07/19 14:21 Baso # (Auto) 0.0 K/uL (0.0-0.1) 09/07/19 14:21 Nucleated RBC % 0.0 /100WBC 09/07/19 14:21 Nucleated RBCs # 0 K/uL 09/07/19 14:21 Lactate 1.7 mmol/L (0.20-2.00) 09/07/19 14:21 Sodium 144 mmol/L (136-145) 09/07/19 14:21 Potassium 3.8 mmol/L (3.5-5.1) 09/07/19 14:21 Chloride 107 mmol/L (98-107) 09/07/19 14:21 Carbon Dioxide 26.8 mmol/L (21.0-32.0) 09/07/19 14:21 BUN 22 mg/dL (7.0-18.0) H 09/07/19 14:21 Creatinine 0.8 mg/dL (0.6-1.0) 09/07/19 14:21 Est Cr Clr Drug Dosing 62.96 mL/min 09/07/19 14:21 Estimated GFR (MDRD) > 60.0 ml/min 09/07/19 14:21 Glucose 125 mg/dL (74-106) H 09/07/19 14:21 Calcium 9.7 mg/dL (8.5-10.1) 09/07/19 14:21 Total Bilirubin 0.3 mg/dL (0.2-1.0) 09/07/19 14:21 AST 16 IU/L (15-37) 09/07/19 14:21 ALT 24 IU/L (14-63) 09/07/19 14:21 Alkaline Phosphatase 76 U/L (46-116) 09/07/19 14:21 Troponin I < 0.050 ng/mL (0.000-0.056) 09/07/19 14:21 Total Protein 7.3 g/dL (6.4-8.2) 09/07/19 14:21 Albumin 4.0 g/dL (3.4-5.0) 09/07/19 14:21 Globulin 3.3 g/dL (2.6-4.0) 09/07/19 14:21 Albumin/Globulin Ratio 1.2 (0.9-1.6) 09/07/19 14:21 Lipase 106 U/L (73-393) 09/07/19 14:21 Urine Color YELLOW 09/07/19 15:20 Urine Appearance SLT CLOUDY 09/07/19 15:20 Urine pH 5.5 (5.0-8.0) 09/07/19 15:20 Ur Specific [place] >= 1.030 (1.001-1.035) 09/07/19 15:20 Urine Protein NEGATIVE mg/dL (NEGATIVE) 09/07/19 15:20 Urine Glucose (UA) NEGATIVE mg/dL (NEGATIVE) 09/07/19 15:20 Urine Ketones NEGATIVE mg/dL (NEGATIVE) 09/07/19 15:20 Urine Occult Blood TRACE-INTACT (NEGATIVE) H 09/07/19 15:20 Urine Nitrite POSITIVE (NEGATIVE) H 09/07/19 15:20 Urine Bilirubin NEGATIVE (NEGATIVE) 09/07/19 15:20 Urine Urobilinogen 0.2 EU/dL (<2.0) 09/07/19 15:20 Ur Leukocyte Esterase SMALL (NEGATIVE) H 09/07/19 15:20 Urine RBC 0-2 (0-2/HPF) 09/07/19 15:20 Urine WBC 30-40 (0-5/HPF) 09/07/19 15:20 Ur Epithelial Cells FEW (NONE-FEW) 09/07/19 15:20 Urine Bacteria FEW (NEGATIVE) 09/07/19 15:20 Urine Mucus 2 (NONE-MOD) 09/07/19 15:20 - Allergies Allergies/Adverse Reactions: Allergies Allergy/AdvReac Type Severity Reaction Status Date / Time vancomycin Allergy Mild Rash Verified 09/07/19 14:25 aspirin Allergy Anaphylactic Verified 09/07/19 14:25 Shock codeine Allergy Nausea Verified 09/07/19 14:25 erythromycin estolate Allergy Cannot Verified 09/07/19 14:25 [From Ilosone] Remember gluten Allergy Rash Verified 09/07/19 14:25 meperidine [From Demerol] Allergy Nausea Verified 09/07/19 14:25 Penicillins Allergy Cannot Verified 09/07/19 14:25 Remember propoxyphene HCl Allergy Nausea Verified 09/07/19 14:25 [From Darvon] - Acknowledgements Anesthesia Type Planned: General Anesthesia Pt an Appropriate Candidate for the Planned Anesthesia: Yes Alternatives and Risks of Anesthesia Discussed w Pt/Guardian: Yes Pt/Guardian Understands and Agrees with Anesthesia Plan: Yes PreAnesthesia Questionnaire HEENT History: Reports: Allergic Rhinitis Other HEENT History: wears glasses/contacts Cardiovascular History: Reports: None Respiratory History: Reports: None Gastrointestinal History: Reports: Diverticulosis, Other (See Below) Other Gastrointestinal History: occasional heartburn- only if she eats gluten Genitourinary History: Reports: None [employer]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 OB/BYN History: hysterectomy Musculoskeletal History: Reports: Fracture Other Musculoskeletal History: hx of fx wrist Neurological History: Reports: Other (See Below) Other Neuro History: hx of motion sickness Psychiatric History: Reports: None Endocrine/Metabolic History: Reports: None Hematologic History: Reports: Blood Transfusion(s) Immunologic History: Reports: None Oncologic (Cancer) History: Reports: Lymphoma Other Oncologic History: 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 Dermatologic History: Reports: Psoriasis - Infectious Disease History Infectious Disease History: Reports: Chicken Pox - Past Surgical History Head Surgeries/Procedures: Reports: None HEENT Surgical History: Reports: Oral Surgery, Tonsillectomy Other HEENT Surgeries/Procedures: wisdom teeth Cardiovascular Surgical History: Reports: Vascular Surgery Other Cardiovascular Surgeries/Procedures: Insertion of Port-a-Cath GI Surgical History: Reports: Appendectomy, Colostomy, Small Bowel, Other (See Below) Other GI Surgeries/Procedures: Laparotomy to repair bowel perforation (due to ruptured diverticulum)- had Colostomy- later reversed, Inguinal Lymph node biopsy Female Surgical History: Reports: Hysterectomy - SUBSTANCE USE Smoking Status *Q: Never Smoker Second Hand Smoke Exposure: No Recreational Drug Use History: No - HOME MEDS Home Medications: Home Meds Lactobacillus Acidophilus [Probiotic] 1 cap PO DAILY 07/12/16 [History] Multivitamin [Multiple Vitamins] 1 tab PO DAILY 04/05/16 [History] [place]-3/DHA/Epa/Fish Oil [[place] 3 500 Softgel] 1,000 mg PO DAILY 04/05/16 [ History] - CURRENT (IN HOUSE) MEDS Current Meds: Current Medications Ciprofloxacin/Dextrose 400 mg/ (Premix) 200 mls @ 200 mls/hr IV NOW STA Stop: 09/07/19 17:23 Discontinued Medications Sodium Chloride (Normal Saline) 1,000 mls @ 999 mls/hr IV BOLUS ONE Stop: 09/07/19 15:39 Last Admin: 09/07/19 15:25 Dose: 999 mls/hr Morphine Sulfate (Morphine) 2 mg IVPUSH ONETIME ONE Stop: 09/07/19 14:41 Last Admin: 09/07/19 15:25 Dose: 2 mg Ondansetron HCl (Zofran) 4 mg IVPUSH ONETIME ONE Stop: 09/07/19 14:41 Last Admin: 09/07/19 15:25 Dose: 4 mg
[2019-09-07] MEDS ORDERED: Iopamidol 200-M 10 ML vial ITHECAL ONE (17:19)
[2019-09-07] MEDS ORDERED: Lidocaine 2% 5 ML SDV ONE (17:26)
[2019-09-07] MEDS ORDERED: Midazolam 1 MG/ML 2 ML SDV ONE (17:26)
[2019-09-07] MEDS ORDERED: Propofol 200 MG/20 ML SDV ONE (17:26)
[2019-09-07] MEDS ORDERED: Ondansetron 4 MG/2 ML SDV ONE (17:26)
[2019-09-07] MEDS ORDERED: Ketorolac 30 MG/ML SDV ONE (17:26)
[2019-09-07] MEDS ORDERED: Dexamethasone 4 MG/ML 5 ML MDV ONE (17:26)
[2019-09-07] MEDS ORDERED: fentaNYL 100 MCG/2 ML SDV ONE (17:26)
[2019-09-07] MEDS ORDERED: 50% Dextrose in Water 50 ML Syringe IVPUSH PRN (18:39)
[2019-09-07] MEDS ORDERED: Atropine 0.1 MG/ML 10 ML Syringe IVPUSH PRN ×2 (18:39)
[2019-09-07] MEDS ORDERED: EPINEPHrine 1:10,000 1 MG/10 ML Syringe IVPUSH PRN (18:39)
[2019-09-07] MEDS ORDERED: Naloxone 0.4 MG/ML Syringe IVPUSH PRN (18:39)
[2019-09-07] MEDS ORDERED: Albuterol 0.083% 2.5 MG/3 ML Neb Soln NEB PRN (18:39)
[2019-09-07] MEDS ORDERED: fentaNYL 100 MCG/2 ML SDV IVPUSH PRN (18:39)
--- NOTE | 2019-09-07 19:36 | PCM.POSTAN ---
POST ANESTHESIA ASSESSMENT - MENTAL STATUS Mental Status: Alert - VITAL SIGNS Vital Signs: Last Vital Signs Temp 36.8 C 09/07/19 19:10 Pulse 95 09/07/19 19:34 Resp 15 09/07/19 19:34 BP 119/54 L 09/07/19 19:34 Pulse Ox 95 09/07/19 19:34 - RESPIRATORY Respiratory Status: Respiratory Rate WNL, Airway Patent, O2 Saturation Stable - CARDIOVASCULAR CV Status: Pulse Rate WNL, Blood Pressure Stable - GASTROINTESTINAL GI Status: No Symptoms - POST OP HYDRATION Hydration Status: Adequate & Stable
--- NOTE | 2019-09-07 19:37 | PCM48HPAN ---
Post Anesthesia Note - EVALUATION WITHIN 48HRS OF ANESTHETIC Vital Signs in Normal Range: Yes Patient Participated in Evaluation: Yes Respiratory Function Stable: Yes Airway Patent: Yes Cardiovascular Function Stable: Yes Hydration Status Stable: Yes Pain Control Satisfactory: Yes Nausea and Vomiting Control Satisfactory: Yes Mental Status Recovered: Yes Vital Signs: Last Vital Signs Temp 36.8 C 09/07/19 19:10 Pulse 95 09/07/19 19:34 Resp 15 09/07/19 19:34 BP 119/54 L 09/07/19 19:34 Pulse Ox 95 09/07/19 19:34
--- NOTE | 2019-09-07 20:38 | OR ---
SURGEON: Flavio Cormier M.D. DATE OF PROCEDURE: 09/07/2019 PREOPERATIVE DIAGNOSIS: Right lower ureteral stone, 4.5 mm. POSTOPERATIVE DIAGNOSIS: Right lower ureteral stone, 4.5 mm. OPERATIONS: Right ureteroscopy, laser lithotripsy, and stent placement. DESCRIPTION OF PROCEDURE: Patient is given general anesthesia. She is in the dorsal lithotomy position, prepped and draped in sterile drapes. Cystourethroscopy was done. A guidewire was advanced, but could not go beyond the stone, so that was replaced with a Glidewire. The lower ureter was then dilated using UroMax II balloon dilator to approximately 15-Honduran. The rigid ureteroscope was then advanced in the right lower ureter. Stone was visualized. Attempts at removing the stone in 1 piece were not successful. There is slight narrowing right below where the stone is. The laser was used to break up the stone and the 2 largest pieces were removed, the rest was dust. A 6-Honduran 26 centimeter double-J stent was advanced over the Glidewire, which was then removed. The bladder was emptied and the patient was moved to recovery room in good condition. PLAN: She comes to my office in 5 days to have her double-J stent taken out. ANGELICA / EFRAIN /[id number]
[2019-09-07 21:05] VITALS: BP 98/55; PULSE 90
--- NOTE | 2019-09-09 09:40 | CONS ---
DATE OF CONSULTATION: 09/07/2019 DATE OF : 1955 PRIMARY CARE PHYSICIAN: Stefano Tirado M.D. HISTORY OF PRESENT ILLNESS: Maraí Bhat is 64 years old, who was seen in the emergency room earlier today having had sudden onset of right flank pain. Her evaluation showed a UA that showed 20 to 30 white blood cells per high-power field. Vital signs were all normal. Her white blood count was normal. Her CT scan showed a 4 mm right lower ureteral stone. She has not had history of ureteral stones in the past. Three years ago, she was diagnosed with non-Hodgkin's lymphoma and in remission currently. PHYSICAL EXAMINATION: GENERAL APPEARANCE: Normal. She is in pain. She is alert and oriented. HEART: Normal sinus rhythm. LUNGS: Clear. ABDOMEN: Mytr-vl-xmkgsurg tenderness over the right side of the abdomen. SKIN: Shows psoriasis. DIAGNOSIS: Right lower ureteral stone. PLAN: Ureteroscopic stone removal. Even though the UA is suggestive of UTI, she was given 400 mg of Cipro IV. She is quite stable. She thought she might have had a bladder infection over the last 2 days. Because of the fact that she is stable, I think it is reasonable to just go ahead and take the stone out, rather than just put a stent in at this time. She does not have any indication that she is anywhere near sepsis. ANGELICA ZUNIGA /[id number]
--- NOTE | 2019-09-09 13:35 | CR ---
EXAM DATE: 09/07/19 PATIENT'S AGE: 64 Abdomen: Two fluoroscopic spot views were obtained of the upper abdomen. Side of examining was not marked on the study but accompanying order states right. Comparison: Prior CT abdomen and pelvis exam of 06/19/19. Findings: Study shows a guidewire in place coiled within the expected area of the renal pelvis. Second exam shows a proximal ureteral stent with pigtail end projected in the expected region of the renal pelvis. Fluoroscopy time given as 9.8 seconds. Impression: 1. Procedural study as noted above. Diagnostic code #2 This report was dictated in [place] Standard Time Report Signed by Proxy. TIBURCIO
== END 2019-09-07 21:25 | disposition home or self-care (01) ==
LOC: MW.ED 14:15 → MW.SDS 16:25
PROVIDERS: ATTEND Urology
DX: N13.2 Hydronephrosis with renal and ureteral calculous obstruction (principal); C85.90 Non-Hodgkin lymphoma, unspecified, unspecified site; Z88.1 Allergy status to other antibiotic agents; Z88.5 Allergy status to narcotic agent; Z88.6 Allergy status to analgesic agent; Z88.0 Allergy status to penicillin; Z91.018 Allergy to other foods; Z79.899 Other long term (current) drug therapy
CPT/HCPCS: 36415; 52356; 71045; 74176; 76000; 80053; 81001; 83605; 83690; 84484; 85025; 87040; 87077; 87086; 87088; 87186; 93005; 96365; 99285; C1769; C2617; J0744; J1100; J1885; J2001; J2250; J2270; J2405; J2704; J3010; J7030; Q9966; 00918; 88300

== ENCOUNTER 2019-11-15 17:18 | Emergency (ER) | payer BC ==
--- NOTE | 2019-11-15 18:15 | EDM.PDOC ---
ED HPI GENERAL MEDICAL PROBLEM - General Chief Complaint: Back Pain or Injury Stated Complaint: BACK PAIN Time Seen by Provider: 11/15/19 18:15 Source of Information: Reports: Patient History Limitations: Reports: No Limitations - History of Present Illness INITIAL COMMENTS - FREE TEXT/NARRATIVE: HISTORY AND PHYSICAL: History of present illness: Patient is a 64-year-old female presents to the ED for low back pain. Patient states that they moved recently and afterwards she developed low back pain. She has been to chiropractor and had massage but states it has not gotten better and actually got worse yesterday. She denies any falls or direct injury or trauma. She denies fevers, chills, nausea, vomiting, diarrhea, abdominal pain, dysuria, hematuria, lower extremity numbness/tingling/weakness, bowel or bladder incontinence. She states she took a 2 year old norco that she had left over at home with no relief of symptoms. Review of systems: As per history of present illness and below otherwise all systems reviewed and negative. Past medical history: As per history of present illness and as reviewed below otherwise noncontributory. Surgical history: As per history of present illness and as reviewed below otherwise noncontributory. Social history: No reported history of drug or alcohol abuse. Family history: As per history of present illness and as reviewed below otherwise noncontributory. Physical exam: General: Patient sitting comfortably in no acute distress and nontoxic appearing HEENT: Atraumatic, normocephalic, pupils reactive, negative for conjunctival pallor or scleral icterus, mucous membranes moist, throat clear, neck supple, nontender, trachea midline. No meningeal signs. Lungs: Clear to auscultation, breath sounds equal bilaterally, chest nontender. Heart: S1S2, regular, negative for clicks, rubs, or overt murmur. Abdomen: Soft, nondistended, nontender. Negative for masses or hepatosplenomegaly. Negative for costovertebral tenderness. No rigidity, rebound , guarding. Pelvis: Stable nontender. Genitourinary: Deferred. Rectal: Deferred. Spine: No vertebral tenderness or step offs to palpation. Pain to palpation of hte right lumbar paraspinals. Extremities: Atraumatic, negative for cords or calf pain. Neurovascular unremarkable. Neuro: Awake, alert, oriented. Cranial nerves II through XII unremarkable. Cerebellum unremarkable. Motor and sensory unremarkable throughout. Exam nonfocal. Notes: Diagnostics: UA, lumbar spine x-ray Therapeutics: Timberlake 5/325 PO Prescriptions: Cipro [place] Impression: UTI, lumbar back pain Plan: Drink plenty of fluids and take antibiotic as directed. You may take norco as needed for severe back pain, do not take while driving or with alcohol as it may make you drowsy. Follow up with primary care provider Return to ED as needed as discussed Definitive disposition and diagnosis as appropriate pending reevaluation and review of above. Lower Back Pain Pain Score (Numeric/FACES): 8 - Related Data Allergies Allergy/AdvReac Type Severity Reaction Status Date / Time vancomycin Allergy Mild Rash Verified 11/15/19 17:45 aspirin Allergy Anaphylactic Verified 11/15/19 17:45 Shock codeine Allergy Nausea Verified 11/15/19 17:45 erythromycin estolate Allergy Cannot Verified 11/15/19 17:45 [From Ilosone] Remember gluten Allergy Rash Verified 11/15/19 17:45 meperidine [From Demerol] Allergy Nausea Verified 11/15/19 17:45 Penicillins Allergy Cannot Verified 11/15/19 17:45 Remember propoxyphene HCl Allergy Nausea Verified 11/15/19 17:45 [From Darvon] Home Meds: Home Meds Lactobacillus Acidophilus [Probiotic] 1 cap PO DAILY 04/05/16 [History] Multivitamin [Multiple Vitamins] 1 tab PO DAILY 04/05/16 [History] [place]-3/DHA/Epa/Fish Oil [[place] 3 500 Softgel] 1,000 mg PO DAILY 04/05/16 [ History] Ciprofloxacin HCl [Cipro] 500 mg PO BID 7 Days #14 tablet 11/15/19 [Rx] Hydrocodone/Acetaminophen [[place]lake 5-325 Tablet] 1 each PO Q6H #10 tablet [Rx] Past Medical History HEENT History: Reports: Allergic Rhinitis Other HEENT History: wears glasses/contacts Cardiovascular History: Reports: None Respiratory History: Reports: None Gastrointestinal History: Reports: Diverticulosis, Other (See Below) Other Gastrointestinal History: occasional heartburn- only if she eats gluten Genitourinary History: Reports: None [employer]IVE [employer] INSPECTOR History: Reports: Other [employer] INS[employer]OR History: hysterectomy Musculoskeletal History: Reports: Fracture Other Musculoskeletal History: hx of fx wrist Neurological History: Reports: Other (See Below) Other Neuro History: hx of motion sickness Psychiatric History: Reports: None Endocrine/Metabolic History: Reports: None Hematologic History: Reports: Blood Transfusion(s) Immunologic History: Reports: None Oncologic (Cancer) History: Reports: Lymphoma Other Oncologic History: 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 Dermatologic History: Reports: Psoriasis - Infectious Disease History Infectious Disease History: Reports: Chicken Pox, Measles, Shingles - Past Surgical History Head Surgeries/Procedures: Reports: None HEENT Surgical History: Reports: Oral Surgery, Tonsillectomy Other HEENT Surgeries/Procedures: wisdom teeth Cardiovascular Surgical History: Reports: Vascular Surgery Other Cardiovascular Surgeries/Procedures: Insertion of Port-a-Cath GI Surgical History: Reports: Appendectomy, Colostomy, Small Bowel, Other (See Below) Other GI Surgeries/Procedures: Laparotomy to repair bowel perforation (due to ruptured diverticulum)- had Colostomy- later reversed, Inguinal Lymph node biopsy Female Surgical History: Reports: Hysterectomy, Kidney stone extraction, Ureteral Stent, Other (See Below) Other Female Surgeries/Procedures: Stent removed. Social & Family History - Family History Family Medical History: Noncontributory Respiratory: Reports: None - Tobacco Use Smoking Status *Q: Never Smoker - Caffeine Use Caffeine Use: Reports: None - Recreational Drug Use Recreational Drug Use: No - Living Situation & Occupation Living situation: Reports: ED ROS GENERAL - Review of Systems Review Of Systems: Comprehensive ROS is negative, except as noted in HPI. ED EXAM,LOWER BACK PAIN/INJURY - Physical Exam Exam: See Below (see dictation) Course - Vital Signs Last Recorded V/S: Last Vital Signs Temp 99.0 F 11/15/19 17:46 Pulse 71 11/15/19 19:47 Resp 16 11/15/19 19:47 BP 139/80 11/15/19 19:47 Pulse Ox 99 11/15/19 19:47 - Orders/Labs/Meds Orders: Active Orders 24 hr Category Date Time Status CULTURE URINE [RM] Stat Lab 11/15/19 18:27 Received Labs: Laboratory Tests 11/15/19 Range/Units 18:27 Urine Color YELLOW Urine Appearance SLT CLOUDY Urine pH 6.0 (5.0-8.0) Ur Specific [place] 1.025 (1.001-1.035) Urine Protein NEGATIVE (NEGATIVE) mg/dL Urine Glucose (UA) NEGATIVE (NEGATIVE) mg/dL Urine Ketones NEGATIVE (NEGATIVE) mg/dL Urine Occult Blood NEGATIVE (NEGATIVE) Urine Nitrite POSITIVE H (NEGATIVE) Urine Bilirubin NEGATIVE (NEGATIVE) Urine Urobilinogen 0.2 (<2.0) EU/dL Ur Leukocyte Esterase SMALL H (NEGATIVE) Urine RBC 0-2 (0-2/HPF) Urine WBC 5-10 (0-5/HPF) Ur Epithelial Cells RARE (NONE-FEW) Urine Bacteria 3+ H (NEGATIVE) Meds: Medications Discontinued Medications Generic Name Dose Route Start Last Admin Trade Name Ocq PRN Reason Stop Dose Admin Hydrocodone Bitart/Acetaminophen 1 tab 11/15/19 18:29 11/15/19 18:49 Timberlake 325-5 Mg PO 11/15/19 18:30 1 tab ONETIME ONE Administration Departure - Departure Time of Disposition: 19:33 Disposition: Home, Self-Care 01 Condition: Good Clinical Impression: Lumbar back pain UTI (urinary tract infection) Qualifiers: Urinary tract infection type: acute cystitis Hematuria presence: with hematuria Qualified Code(s): N30.01 - Acute cystitis with hematuria - Discharge Information Prescriptions: Ciprofloxacin HCl [Cipro] 500 mg PO BID 7 Days #14 tablet Hydrocodone/Acetaminophen [[place]lake 5-325 Tablet] 1 each PO Q6H #10 tablet Instructions: Urinary Tract Infection, Adult, [id number], Back Exercises, [id number] Referrals: Stefano Tirado MD [Primary Care Provider] - Forms: ED Department Discharge Additional Instructions: The following information is given to patients seen in the emergency department who are being discharged to home. This information is to outline your options for follow-up care. We provide all patients seen in our emergency department with a follow-up referral. The need for follow-up, as well as the timing and circumstances, are variable depending upon the specifics of your emergency department visit. If you don't have a primary care physician on staff, we will provide you with a referral. We always advise you to contact your personal physician following an emergency department visit to inform them of the circumstance of the visit and for follow-up with them and/or the need for any referrals to a consulting specialist. The emergency department will also refer you to a specialist when appropriate. This referral assures that you have the opportunity for follow-up care with a specialist. All of these measure are taken in an effort to provide you with optimal care, which includes your follow-up. Under all circumstances we always encourage you to contact your private physician who remains a resource for coordinating your care. When calling for follow-up care, please make the office aware that this follow-up is from your recent emergency room visit. If for any reason you are refused follow-up, please contact the [facility] Emergency Department at and asked to speak to the emergency department charge nurse. [facility] [address] [place] [id number] [address] [address] Drink plenty of fluids and take antibiotic as directed. You may take norco as needed for severe back pain, do not take while driving or with alcohol as it may make you drowsy. Follow up with primary care provider Return to ED as needed as discussed Sepsis Event Note - Evaluation Sepsis Screening Result: No Definite Risk - Focused Exam Vital Signs: Vital Signs Temp Pulse Resp BP Pulse Ox 11/15/19 19:47 71 16 139/80 99 11/15/19 17:46 99.0 F 82 16 149/70 H 99 Date Exam was Performed: 11/15/19 Time Exam was Performed: 20:20 - My Orders Last 24 Hours: My Active Orders 11/15/19 18:27 CULTURE URINE [RM] Stat - Assessment/Plan Last 24 Hours: My Active Orders 11/15/19 18:27 CULTURE URINE [RM] Stat
[2019-11-15] MEDS ORDERED: Acetaminophen/HYDROcodone 325-5 MG Tab PO ONE (18:29)
--- NOTE | 2019-11-15 19:25 | CR ---
Lumbar spine: AP, lateral and coned-down lateral view centered to the lumbosacral junction were obtained. Comparison: Previous reconstructed lateral views from CT exam of 09/07/19. Mild compression deformity is seen of L1 which appears old. Vertebral body heights are otherwise maintained. Disc spaces are fairly well-preserved. Scattered endplate osteophytes are noted. Mild scoliosis is noted. No acute fracture or subluxation is seen. Impression: 1. Findings as described above which are stable from prior exam. 2. Nothing acute is appreciated. Diagnostic code #2 Study was dictated in [place] Standard Time
[2019-11-15 19:47] VITALS: BP 139/80; PULSE 71
== END 2019-11-15 19:48 | disposition home or self-care (01) ==
LOC: MW.ED 17:18
DX: N30.01 Acute cystitis with hematuria (principal); Z79.899 Other long term (current) drug therapy; Z88.5 Allergy status to narcotic agent; Z88.6 Allergy status to analgesic agent; Z88.1 Allergy status to other antibiotic agents; Z88.0 Allergy status to penicillin
CPT/HCPCS: 72100; 81001; 87086; 87088; 87186; 99283; A9270

== ENCOUNTER 2022-10-01 22:50 | Emergency (ER) | payer MEDICARE, BC ==
[2022-10-01] MEDS ORDERED: Acetaminophen/HYDROcodone 325-5 MG Tab PO ONE (23:24)
[2022-10-01] MEDS ORDERED: Acyclovir 200 MG Cap PO ONE (23:24)
[2022-10-01] MEDS ORDERED: Sulfamethoxazole/Trimethoprim 800-160 MG Tab PO ONE (23:25)
[2022-10-02 00:10] VITALS: BP 130/72; PULSE 78
== END 2022-10-01 23:50 | disposition home or self-care (01) ==
LOC: MW.ED 22:50
DX: L03.90 Cellulitis, unspecified (principal); B95.62 Methicillin resistant Staphylococcus aureus infection as the cause of diseases classified elsewhere; B02.9 Zoster without complications; Z88.1 Allergy status to other antibiotic agents; Z88.5 Allergy status to narcotic agent; Z88.0 Allergy status to penicillin
CPT/HCPCS: 99282; A9270

== ENCOUNTER 2022-10-02 23:25 | Emergency (ER) | payer MEDICARE, BC ==
[2022-10-02] MEDS ORDERED: HYDROmorphone 1 MG/ML Syringe IVPUSH ONE (23:38)
[2022-10-02] MEDS ORDERED: Ondansetron 4 MG/2 ML SDV IVPUSH ONE (23:38)
[2022-10-02] MEDS ORDERED: Sodium Chloride 0.9% 2.5 ML Syringe FLUSH PRN (23:38)
[2022-10-02] MEDS ORDERED: Sodium Chloride 0.9% 10 ML Syringe FLUSH PRN (23:38)
[2022-10-03 00:32] LABS: CARBON DIOXIDE,CO2 22.5 mmol/L (21.0-32.0); POTASSIUM,K 3.9 mmol/L (3.5-5.1)
[2022-10-03] MEDS ORDERED: Acetaminophen/HYDROcodone 325-10 MG Tab PO ONE (01:04)
[2022-10-03] MEDS ORDERED: Ondansetron 4 MG/2 ML SDV IVPUSH ONE (01:05)
[2022-10-03 01:33] VITALS: BP 135/66; PULSE 71
== END 2022-10-03 01:33 | disposition home or self-care (01) ==
LOC: MW.ED 23:25
DX: L03.90 Cellulitis, unspecified (principal); B02.9 Zoster without complications; A49.02 Methicillin resistant Staphylococcus aureus infection, unspecified site; R11.2 Nausea with vomiting, unspecified; Z88.1 Allergy status to other antibiotic agents
CPT/HCPCS: 36415; 70450; 80053; 85025; 96374; 96375; 96376; 99284; A9270; J1170; J2405; J3490

== ENCOUNTER 2022-12-11 09:51 | Emergency (ER) | payer MEDICARE, BC ==
[2022-12-11] MEDS ORDERED: Sodium Chloride 0.9% 10 ML Syringe FLUSH PRN (10:06)
[2022-12-11] MEDS ORDERED: Sodium Chloride 0.9% 2.5 ML Syringe FLUSH PRN (10:06)
[2022-12-11] MEDS ORDERED: Famotidine 20 MG/2 ML SDV IVPUSH ONE (10:25)
[2022-12-11] MEDS ORDERED: Sodium Chloride 0.9% 1,000 ML IV ONE (10:34)
[2022-12-11 10:39] LABS: CARBON DIOXIDE,CO2 25.4 mmol/L (21.0-32.0); POTASSIUM,K 3.5 mmol/L (3.5-5.1)
[2022-12-11] MEDS ORDERED: Iopamidol 755 MG/ML 500 ML Multipack Bottle IVPUSH ONE (11:06)
[2022-12-11 11:18] LABS: CORONAVIRUS COVID-19 NAA NEGATIVE (NEGATIVE); INFLUENZA A NAA NEGATIVE (NEGATIVE); INFLUENZA B NAA NEGATIVE (NEGATIVE)
[2022-12-11 12:49] VITALS: BP 141/72; PULSE 77
== END 2022-12-11 12:41 | disposition home or self-care (01) ==
LOC: MW.ED 09:51
DX: N30.01 Acute cystitis with hematuria (principal); N20.0 Calculus of kidney; K29.70 Gastritis, unspecified, without bleeding; Z88.1 Allergy status to other antibiotic agents; Z88.8 Allergy status to other drugs, medicaments and biological substances; Z88.5 Allergy status to narcotic agent; Z88.0 Allergy status to penicillin; Z91.018 Allergy to other foods; Z79.899 Other long term (current) drug therapy; Z20.822 Contact with and (suspected) exposure to COVID-19; Z90.49 Acquired absence of other specified parts of digestive tract
CPT/HCPCS: 0240U; 36415; 74177; 80053; 81001; 83690; 84484; 85025; 87086; 87088; 87186; 93005; 96361; 96374; 99285; J3490; J7030; Q9967; 93010; 99284

== ENCOUNTER 2024-08-31 09:59 | Emergency (ER) | payer MEDICARE, BC ==
[2024-08-31 10:33] LABS: APPEARANCE,URINE CLEAR; BILIRUBIN,URINE NEGATIVE (NEGATIVE); COLOR,URINE YELLOW; GLUCOSE,URINE NEGATIVE (NEGATIVE); KETONES,URINE NEGATIVE (NEGATIVE); LEUKOCYTE ESTERASE,URINE SMALL (NEGATIVE); NITRITE,URINE NEGATIVE (NEGATIVE); OCCULT BLOOD,URINE NEGATIVE (NEGATIVE); PROTEIN,URINE NEGATIVE (NEGATIVE); UROBILINOGEN,URINE 0.2 EU/dL (<2.0)
[2024-08-31] MEDS: Ondansetron 4 MG/2 ML SDV IVPUSH ONE (10:37)
[2024-08-31 10:42] LABS: BACTERIA,URINE FEW (NEGATIVE); EPITHELIAL CELLS,URINE OCCASIONAL (NONE-FEW); RBC,URINE 0-1 (0-2/HPF); WBC,URINE 0-5 (0-5/HPF)
[2024-08-31] MEDS: Sodium Chloride 0.9% 1,000 ML IV ONE (10:42)
[2024-08-31] MEDS: Meclizine 25 MG Tab PO ONE (10:42)
[2024-08-31 10:50] LABS: BASOPHILS ABSOLUTE AUTO 0.03 K/uL (0.00-0.20); BASOPHILS PERCENT AUTO 0.5 % (0.0-1.0); EOSINOPHILS ABSOLUTE AUTO 0.18 K/uL (0.00-0.45); EOSINOPHILS PERCENT AUTO 3.1 % (0.0-6.0); HEMOGLOBIN 13.3 g/dL (12.0-16.0); IMMATURE GRAN ABSOLUTE AUTO 0.02 K/uL (0.00-0.05); IMMATURE GRAN PERCENT AUTO 0.3 % (0.0-0.4); LYMPHOCYTES PERCENT AUTO 20.7 % (24.0-44.0); MEAN CORPUSCULAR HEMOGLOBIN 31.2 pg (28.0-32.0); MEAN CORPUSCULAR VOLUME 89.2 fL (83.0-99.0); MONOCYTES ABSOLUTE AUTO 0.43 K/uL (0.00-0.80); MONOCYTES PERCENT AUTO 7.4 % (0.0-8.0); NEUTROPHILS ABSOLUTE AUTO 3.94 K/uL (1.80-7.70); PLATELET COUNT,PLT 154 K/uL (150-400); RED BLOOD CELL COUNT 4.26 M/uL (4.10-5.30)
[2024-08-31 11:16] LABS: LACTIC ACID 1.1 mmol/L (0.4-2.0)
[2024-08-31 11:18] LABS: A/G RATIO 1.3 (0.9-1.6); ALBUMIN 3.8 g/dL (3.4-5.0); BILIRUBIN TOTAL 0.4 mg/dL (0.2-1.0); CALCIUM 8.7 mg/dL (8.5-10.1); CARBON DIOXIDE,CO2 27.9 mmol/L (21.0-32.0); CREATININE 0.7 mg/dL (0.6-1.0); EST CRCL DRUG DOSING (CG) 67.34 mL/min; MAGNESIUM 1.9 mg/dL (1.8-2.4); POTASSIUM,K 3.7 mmol/L (3.5-5.1); PROTEIN TOTAL,TP 6.7 g/dL (6.4-8.2); TSH ULTRASENSITIVE 9.38 uIU/mL (0.36-3.74)
[2024-08-31] MEDS: Iopamidol 755 MG/ML 500 ML Multipack Bottle IVPUSH STA (11:40)
[2024-08-31 12:04] LABS: T3 FREE 3.4 pg/mL (2.18-3.98); T4 FREE 0.85 ng/dL (0.76-1.46)
[2024-08-31 13:29] VITALS: BP 148/74; PULSE 66
== END 2024-08-31 13:23 | disposition home or self-care (01) ==
LOC: MW.ED 09:59
DX: R42 Dizziness and giddiness (principal); Z90.49 Acquired absence of other specified parts of digestive tract; Z90.710 Acquired absence of both cervix and uterus; Z86.16 Personal history of COVID-19; Z88.1 Allergy status to other antibiotic agents; Z88.0 Allergy status to penicillin; Z88.5 Allergy status to narcotic agent; Z88.6 Allergy status to analgesic agent; Z88.8 Allergy status to other drugs, medicaments and biological substances; Z79.899 Other long term (current) drug therapy; Z75.8 Other problems related to medical facilities and other health care
CPT/HCPCS: 36415; 70450; 70496; 70498; 80053; 81001; 83605; 83735; 84439; 84443; 84481; 84484; 85025; 87040; 87086; 93005; 96360; 99284; J7030; Q9967

== ENCOUNTER 2024-11-11 18:32 | Emergency (ER) | payer MEDICARE, BC ==
[2024-11-11] MEDS ORDERED: Sodium Chloride 0.9% 2.5 ML Syringe FLUSH PRN (19:01)
[2024-11-11] MEDS ORDERED: Sodium Chloride 0.9% 10 ML Syringe FLUSH PRN (19:01)
[2024-11-11 19:24] LABS: BASOPHILS ABSOLUTE AUTO 0.01 K/uL (0.00-0.20); BASOPHILS PERCENT AUTO 0.3 % (0.0-1.0); EOSINOPHILS ABSOLUTE AUTO 0.03 K/uL (0.00-0.45); EOSINOPHILS PERCENT AUTO 0.9 % (0.0-6.0); HEMATOCRIT 37.2 % (37.0-47.0); HEMOGLOBIN 12.9 g/dL (12.0-16.0); IMMATURE GRAN ABSOLUTE AUTO 0.02 K/uL (0.00-0.05); IMMATURE GRAN PERCENT AUTO 0.6 % (0.0-0.4); LYMPHOCYTES ABSOLUTE AUTO 0.27 K/uL (1.00-4.80); MEAN CORPUSCULAR HEMOGLOBIN 30.9 pg (28.0-32.0); MEAN CORPUSCULAR HGB CONC 34.7 g/dL (32.0-36.0); MEAN CORPUSCULAR VOLUME 89.2 fL (83.0-99.0); MEAN PLATELET VOLUME 10.9 fL (9.4-12.3); MONOCYTES ABSOLUTE AUTO 0.44 K/uL (0.00-0.80); MONOCYTES PERCENT AUTO 13.1 % (0.0-8.0); NEUTROPHILS ABSOLUTE AUTO 2.59 K/uL (1.80-7.70); NEUTROPHILS PERCENT AUTO 77.1 % (41.0-71.0); PLATELET COUNT,PLT 128 K/uL (150-400); RED BLOOD CELL COUNT 4.17 M/uL (4.10-5.30); WHITE BLOOD CELL COUNT,WBC 3.36 K/uL (3.9-11.3)
[2024-11-11 19:35] LABS: A/G RATIO 1.1 (0.9-1.6); ALANINE AMINOTRANSFERASE,ALT 34 IU/L (14-63); ALBUMIN 3.6 g/dL (3.4-5.0); ALKALINE PHOSPHATASE 90 U/L (46-116); ASPARTATE AMNIOTRANSFERASE,AST 25 IU/L (15-37); BILIRUBIN TOTAL 0.4 mg/dL (0.2-1.0); BLOOD UREA NITROGEN,BUN 11 mg/dL (7.0-18.0); CALCIUM 8.7 mg/dL (8.5-10.1); CARBON DIOXIDE,CO2 25.3 mmol/L (21.0-32.0); CHLORIDE,CL 103 mmol/L (98-107); CREATININE 0.8 mg/dL (0.6-1.0); EST CRCL DRUG DOSING (CG) 58.93 mL/min; GLUCOSE RANDOM 96 mg/dL (74-106); LIPASE 29 U/L (16-77); PROTEIN TOTAL,TP 6.8 g/dL (6.4-8.2); SODIUM,NA 140 mmol/L (136-145)
[2024-11-11 19:36] LABS: ESTIMATED GFR 81 mL/min (>60)
[2024-11-11 21:36] VITALS: BP 140/67; PULSE 84
== END 2024-11-11 21:40 | disposition home or self-care (01) ==
LOC: MW.ED 18:32
DX: R07.89 Other chest pain (principal); Z75.8 Other problems related to medical facilities and other health care; Z88.0 Allergy status to penicillin; Z88.1 Allergy status to other antibiotic agents; Z88.8 Allergy status to other drugs, medicaments and biological substances; Z86.16 Personal history of COVID-19; Z90.49 Acquired absence of other specified parts of digestive tract; Z90.710 Acquired absence of both cervix and uterus
CPT/HCPCS: 36415; 71046; 71046-26; 80053; 83690; 84484; 85025; 85379; 93005; 93010; 99283; 99285